=== PATIENT | male | born 1940 | race Caucasian/White ===

== ENCOUNTER 2017-03-04 20:16 | Inpatient (IN) | payer MEDICARE, BC ==
[~2017-03-04] VITALS: Ht 180.3 cm; Wt 108.0 kg
--- NOTE | ~2017-03-04 | HEMODYNAMI ---
PATIENT:CLARE PERRY MEDICAL RECORD: [id number] : 44 [facility] [id number] ADMISSION DATE: 03/06/17 Generatedon:03/09/20178:42 Patient name: CLARE PERRY Patient #: [id number] SSN: : 1940 Date of study: 03/09/2017 Page: Of Hemodynamic Procedure Report Patient Data Patient Demographics Procedure consent was obtained First Name: CLARE Gender: Male Last Name: ORLANDO : 1940 [facility] Initial: L Age: 77 year(s) Patient #: [id number] Race: Additional ID: [id number] Contact details [address]: [address] [place] [address] State: [place] City: [place] Zip code: [address] Past Medical History Allergies Allergen Reaction Date Comments Reported Other allergy 03/08/2017 codeine Other allergy 03/09/2017 Codeine Admission Admission Data Admission Date: 03/06/2017 Admission Time: 11:42 Arrival Date: 03/06/2017 Arrival Time: 11:42 Admit Source: Other Insurance Payor: Medicare Room #: D.2114 Lab Results Lab Result Date: 03/09/2017 Lab Result Time: 0:00 Biochemistry Name Units Result Min Max BUN mg/dl 18 --(---*)-- 7 18 Creatinine mg/dl 1.3 --(---*)-- 0.6 1.3 CBC Name Units Result Min Max Hematocrit % 41.7 -*(----)-- 42 54 Hemoglobin g/dl 14.3 --(*---)-- 13.5 17.5 Procedure Procedure Types Cath Procedure PCI Procedure Coronary Stent Coronary Stent Initial Miscellaneous Procedures Moderate Sedation up to 15 minutes Procedure Description Procedure Date Procedure Date: 03/09/2017 Procedure Start Time: 8:27 Procedure End Time: 8:40 Procedure Staff Name Function Satya Rios MD Performing Physician Nahum Burks RT Monitor Samara Young RT Scrub Buffie Kline RN Nurse Procedure Data Cath Procedure Fluoroscopy Diagnostic fluoroscopy Total fluoroscopy Time: 2.7 time: 2.7 min min Diagnostic fluoroscopy Total fluoroscopy dose: 184 dose: 184 mGy mGy Contrast Material Contrast Material Type Amount (ml) Isovue 300 42 Entry Location Entry Primary Successful Side Size Upsize Upsize Entry Closure Succes sful Closure Location (Fr) 1 (Fr) 2 (Fr) Remarks Device Remarks Femoral Left 6 Fr Exoseal artery Short Estimated blood loss: 10 ml Procedure Complications No complications Procedure Medications Medication Administration Route Dosage Oxygen NC 2 l/min Lidocaine 2% added to field 20 Heparin Flush Bag added to field 2 bags (1000units/500ml NS) 0.9% NaCl I.V. 100 ml/hr Versed I.V. 1 mg Fentanyl I.V. 50 mcg Heparin Bolus I.V. 4000 units Versed I.V. 0.5 mg Fentanyl I.V. 25 mcg Hemodynamics Rest HGB: 14.3 (g/dl) Heart Rate: 74 (bpm) Snapshots Pre Cath Intra NCS Post Cath Vital Signs Time Heart Resp SPO2 etCO2 NIBP (mmHg) Rhythm Pain Sedation Rate (ipm) (%) (mmHg) Status Level (bpm) 8:12:06 75 14 98 32.7 148/83(115) NSR 0 (11) 10(A) , No pain 8:16:53 70 15 97 35 143/78(119) NSR 0 (11) 10(A) , No pain 8:21:37 73 14 96 24.3 140/81(106) NSR 0 (11) 10(A) , No pain 8:26:20 71 15 97 0 140/80(117) NSR 0 (11) 10(A) , No pain 8:31:03 75 14 95 32.7 131/80(107) NSR 0 (11) 9(A) , No pain 8:35:41 79 16 97 29.8 127/80(119) NSR 0 (11) 9(A) , No pain 8:40:14 77 15 97 29.7 134/72(99) NSR 0 (11) 10(A) , No pain Medications Time Medication Route Dose Verified Delivered Reason Notes Effectiveness by by 8:10:40 Oxygen NC 2 Satya Schmitt used for l/min 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 100 Satya Buffie Per physician ml/hr Gabriel Kline RN 8:27:33 Versed I.V. 1 mg Satya Buffie for sedation Gabriel Kline RN 8:27:39 Fentanyl I.V. 50 Satya Buffie for sedation mcg Gabriel Kline RN 8:30:21 Heparin Bolus I.V. 4000 Satya Buffie for verifie d units Gabriel Kline RN anticoagulation with dr rios 8:31:35 Versed I.V. 0.5 Satya Buffie for sedation mg Gabriel Kline RN 8:31:39 Fentanyl I.V. 25 Satya Buffie for sedation mcg Gabriel Kline RN Procedure Log Time Note 7:36:12 Informed consent obtained and on chart 7:36:33 Time tracking: Regular hours 7:36:37 Plan of Care:Hemodynamics will remain stable., Cardiac rhythm will remain stable., Comfort level will be maintained., Respiratory function will remain adequate., Patient/ family verbilizes understanding of procedure., Procedure tolerated without complication., Recovers from procedure without complications.. 7:37:36 H&P Date Dictated: 03/08/2017 Within 30 days and on chart.. 7:41:59 Nahum JAY(R) sent for patient. Start room use. 7:43:40 Lab Result : BUN 18 mg/dl 7:43:40 Lab Result : Creatinine 1.3 mg/dl 7:43:40 Lab Result : Hemoglobin 14.3 g/dl 7:43:44 Lab results completed and on chart. 7:54:11 Patient received from Pre/Post Procedure Room to CCL 1 Alert and oriented. Tansferred to table in Supine position. 7:54:12 Warm blankets applied, and janessa hugger turned on for patient comfort. 7:54:13 Correct patient and procedure confirmed by team. 7:54:14 ECG and BP/O2 sat monitors applied to patient. 7:55:12 IV left forearm D/C'd due to infiltration. 8:10:40 Oxygen 2 l/min NC was administered by Oskar Kline RN; used for procedure; 8:10:48 Lidocaine 2% 20ml vial added to field was administered by Satya Rios MD; for local anesthetic; 8:10:51 IV started by Oskar Kline RN inright forearm with a 20 gauge IV catheter with 0.9% NaCl at KVO. 8:10:54 Heparin Flush Bag (1000units/500ml NS) 2 bags added to field was administered by Satya Rios MD; used for procedure; 8:11:02 0.9% NaCl 100 ml/hr I.V. was administered by Oskar Kline RN; Per physician; 8:11:05 Vital chart was started 8:11:08 IV CATHETER 20g opened to sterile field. 8:11:13 IV Extension Set opened to sterile field. 8:11:27 Baseline sample Acquired. 8:11:30 Rhythm: sinus rhythm 8:11:32 Full Disclosure recording started 8:11:33 Pre-procedure instructions explained to patient. 8:11:35 Pre-op teaching completed and patient verbalized understanding. 8:11:38 Family in patients room. 8:11:39 Patient NPO since Midnight. 8:11:48 Patient allergic to Other allergyCodeine 8:11:50 Is the patient allergic to Iodine/contrast media? No. 8:11:51 Is patient on blood thinner?Yes 8:11:52 ACC The patient was administered the following blood thiners within the last 24 hours: ACCPlavix 8:11:53 Patient diabetic? Yes. 8:11:54 If diabetic: On Metformin? No 8:11:59 Previous problem with sedation/anesthesia? No ? 8:11:59 Snore? Yes 8:12:00 Sleep apnea? Yes 8:12:01 Deviated septum? No 8:12:02 Opens mouth fully? Yes 8:12:03 Sticks out tongue? Yes 8:12:04 Airway obstruction? No ? 8:12:05 Dentures? No ? 8:12:09 Pre procedure: left posterior tibial pulse 1+ Palpable, but thready & weak; easily obliterated 8:12:16 Patient pain scale 0/10 ?. 8:12:21 Left groin area was prepped with chlora-prep and draped in sterile fashion 8:12:31 Use device set CATH PACK 8:12:35 ACIST Syringe (95363) opened to sterile field. 8:12:36 ACIST Hand Control (51670) opened to sterile field. 8:12:36 ACIST Manifold (26641) opened to sterile field. 8:12:37 Medline Cath Pack ([id number]) opened to sterile field. 8:12:37 Bag Decanter (2002S) opened to sterile field. 8:12:38 DIAGNOSTIC WIRE .035 260cm J wire (971604) opened to sterile field. 8:12:46 SHEATH 6FR [place] (WOW561) opened to sterile field. 8:12:46 INFLATOR Merit BasixCompak (MV7490) opened to sterile field. 8:12:59 Alarms reviewed by R. N. 8:12:59 Sharps counted by scrub and verified by R.N. 8:15:33 Zero performed for pressure channel P1 8:15:36 Zero performed for pressure channel P1 8:16:17 Zero performed for pressure channel P1 8:18:24 Lab Result : Hematocrit 41.7 % 8:21:38 CHOICE PT Extra Support 182cm wire ([id number]) opened to sterile field. 8:21:39 GUIDE 6FR HS II catheter ([id number]) opened to sterile field. 8:27:17 Physician arrived 8:27:17 --------ALL STOP TIME OUT------ 8:27:17 Final Timeout: patient, procedure, and site verified with staff and physician. All members of the team are in agreement. 8:27:18 Left groin site verified by team. 8:27:21 Physical assessment completed. ASA score P 2 - A patient with mild systemic disease as per Satya Rios MD. 8:27:24 Sedation plan: IV Moderate Sedation Medication:Versed, Fentanyl 8:27:30 Procedure started. 8:27:33 Versed 1 mg I.V. was administered by Oskar Kline RN; for sedation; 8:27:33 Local anesthetic to left femerol artery with Lidocaine 2% by Satya Rios MD.INITIAL ACCESS ONLY 8:27:39 Fentanyl 50 mcg I.V. was administered by Oskar Kline RN; for sedation; 8:28:22 A 6 Fr Short sheath was inserted into the Left Femoral artery 8:29:14 6 Fr HSII guide catheter was inserted over the wire 8:30:21 Heparin Bolus 4000 units I.V. was administered by Oskar Kline RN; for anticoagulation; verified with dr rios 8:30:43 Guide Catheter removed. pressure damping. 8:30:52 GUIDE 6FR AR 2.0 SH catheter ([id number]) opened to sterile field. 8:31:22 6 Fr AR 2 SH guide catheter was inserted over the wire 8:31:35 Versed 0.5 mg I.V. was administered by Oskar Kline RN; for sedation; 8:31:39 Fentanyl 25 mcg I.V. was administered by Oskar Kline RN; for sedation; 8:32:56 CHOICE PT ES wire advanced. 8:33:58 Wire advanced across lesion. 8:34:54 Inflation Number: 1 A BRITNI RX 3.0 x 34 stent ([id number]) was prepped and advanced across the Mid RCA. The stent was deployed at 15 GLORIA for 0:10 (min:sec). 8:35:22 Stent catheter was removed intact over wire. 8:35:27 Wire removed. 8:35:31 Guide catheter removed. 8:35:36 EXOSEAL 6Fr (EX600) opened to sterile field. 8:35:43 Sheath removed intact; hemostasis achieved with Exoseal to the Left Femoral artery. 8:35:45 Procedure ended.(Physican Out) 8:35:53 Fluoroscopy time 02.70 minutes. 8:35:57 Flurop Dose total: 184 8:35:57 Fluoroscopy dose: 184 mGy 8:36:00 Contrast amount:Isovue 300 42ml. 8:36:28 Sharps counted by scrub and verified by R.N. 8:36:29 Insertion/operative site no bleeding no hematoma. 8:36:32 Post-op/insertion site Left Femoral artery dressed using a 4 x 4 and Tegaderm. 8:36:37 Post left femerol artery:stable, soft, clean and dry 8:36:39 Post Procedure Pulses reassessed and unchanged 8:36:41 Post-procedure physical assessment completed. ASA score P 2 - A patient with mild systemic disease as per Satya Rios MD. 8:36:43 Post procedure rhythm: unchanged. 8:36:45 Estimated blood loss: 10 ml 8:36:47 Post procedure instruction explained to patient.Patient verbalizes understanding. 8:36:47 Patient needs reinforcement of post procedure teaching. 8:40:33 Procedure and supply charges have been captured, reviewed, submitted and are correct. 8:40:36 Procedure Complication : No complications 8:40:38 Vital chart was stopped 8:40:38 See physician's report for complete and final results. 8:40:40 Report given to PCU. 8:40:43 Patient transfered to Pre/Post Procedure Room with Stretcher. 8:40:44 Procedure ended. 8:40:44 Full Disclosure recording stopped 8:41:02 End room use (Document Last) Intervention Summary Intervention Notes Time ActionType Lesion and Equipment Used Action# Pressure Duration Attributes 8:34:54 Place stent Mid RCA BRITNI RX 3.0 x 1 15 00:10 34 stent ([id number]) Device Usage Item Name Manufacture Quantity Catalog Number Hospital Part Current M inimal Lot# / Charge Number Stock Stock Serial# Code IV CATHETER B. Amato 1 [id number] [id number] 214002 5 20g IV Extension Hospira 1 61119-49 003474 23320 651661 5 Set ACIST Syringe Acist 1 60703 594128 951626 737671 2 0 (21803) Medical Systems Inc ACIST Hand Acist 1 32190 086844 216378 438065 5 Control Medical (95512) Systems Inc ACIST Manifold Acist 1 75372 513020 608390 738580 5 (94630) Medical Systems Inc Medline Cath Cardinal 1 [id number] 942718 96621 169867 5 [facility] ([id number]) Bag Decanter Microtek 1 2001S 991909 77282 585664 5 (2001S) Medical Inc. DIAGNOSTIC St Remi 1 483686 957088 139802 738666 3 0 WIRE .035 260cm J wire (797197) SHEATH 6FR Terumo 1 [id number] 184315 534979 122975 4 0 [place] (IFN525) INFLATOR Merit Merit 1 TY4905 500401 538049 439509 1 5 [employer] [facility] HealthcareSureDone (UI9290) CHOICE PT [place] 1 [id number] 138092 692605 761664 5 Extra Support Scientific 182cm wire ([id number]) GUIDE 6FR HS Medtronic 1 [id number] 735849 76621 595739 1 II catheter (DB0MCUM) GUIDE 6FR AR Medtronic 1 [id number] 139652 42031 740226 1 2.0 SH catheter ([id number]) BRITNI RX 3.0 x Medtronic 1 [id number] 431384 0991256 768793 5 [id number] 34 stent ([id number]) EXOSEAL 6Fr Cardinal 1 EX600 307883 492921 169499 1 0 (EX600) Health Signature Audit [place] Stage Time Signature Unsigned Intra-Procedure 03/09/2017 Nahum Burks 8:42:40 AM RT(R) Signatures Monitor : Nahum Burks RT Signature : Date : Time : [id number] [place] [address]
--- NOTE | ~2017-03-04 | HEMODYNAMI ---
PATIENT:CLARE PERRY MEDICAL RECORD: [id number] : 44 [id number] ADMISSION DATE: 03/06/17 Generatedon:03/08/201713:01 Patient name: CLARE PERRY Patient #: [id number] SSN: : 1940 Date of study: 03/08/2017 Page: Of Hemodynamic Procedure Report Patient Data Patient Demographics Procedure consent was obtained First Name: CLARE Gender: Male Last Name: ORLANDO : 1940 Middle Initial: L Age: 77 year(s) Patient #: [id number] Race: Additional ID: [id number] Contact details Address: [address] [place] [address] State: [place] City: [place] Zip code: [address] Past Medical History Allergies Allergen Reaction Date Comments Reported Other allergy 03/08/2017 codeine Admission Admission Data Admission Date: 03/06/2017 Admission Time: 11:42 Arrival Date: 03/06/2017 Arrival Time: 11:42 Admit Source: Other Insurance Payor: Medicare Room #: D.2114 Lab Results Lab Result Date: 03/08/2017 Lab Result Time: 0:00 Biochemistry Name Units Result Min Max BUN mg/dl 17 --(---*)-- 7 18 Creatinine mg/dl 1.2 --(---*)-- 0.6 1.3 CBC Name Units Result Min Max Hemoglobin g/dl 14.5 --(*---)-- 13.5 17.5 Procedure Procedure Types Cath Procedure Diagnostic Procedure LHC LHC w/Coronaries FFR/IVUS Intra-Coronary IVUS Initial PCI Procedure Coronary Stent Coronary Stent Initial Miscellaneous Procedures Moderate Sedation up to 30 minutes Procedure Description Procedure Date Procedure Date: 03/08/2017 Procedure Start Time: 12:34 Procedure End Time: 12:57 Procedure Staff Name Function Satya Rios MD Performing Physician Gia Alcocer RT Monitor Latisha Rascon RT Scrub Estefanía Castellano RN Nurse Procedure Data Cath Procedure Fluoroscopy Diagnostic fluoroscopy Total fluoroscopy Time: 4.9 time: 4.9 min min Diagnostic fluoroscopy Total fluoroscopy dose: dose: 1020 mGy 1020 mGy Contrast Material Contrast Material Type Amount (ml) Isovue 300 145 Entry Location Entry Primary Successful Side Size Upsize Upsize Entry Closure Succes sful Closure Location (Fr) 1 (Fr) 2 (Fr) Remarks Device Remarks Femoral Right 5 Fr 6 Fr Exoseal artery Short Estimated blood loss: 5 ml Diagnostic catheters Device Type Used For End Catheter Placement MULTIPACK Pigtail 5 Fr LV Angiography catheter MULTIPACK JL 4.0 5Fr Left Coronary catheter Angiography MULTIPACK 3DRC 5Fr Right Coronary catheter Angiography Procedure Complications No complications Procedure Medications Medication Administration Route Dosage 0.9% NaCl I.V. 100 ml/hr Oxygen NC 2 l/min Lidocaine 2% added to field 20 Heparin Flush Bag added to field 2 bags (1000units/500ml NS) Fentanyl I.V. 50 mcg Versed I.V. 1 mg Fentanyl I.V. 25 mcg Versed I.V. 0.5 mg Heparin Bolus I.V. 4000 units Nitroglycerin IC/IA I.C. 200 mcg Integrilin (Bolus I.V. 9.5 ml 2mg/ml) Plavix P.O. 600 mg Hemodynamics Rest HGB: 14.5 (g/dl) Heart Rate: 68 (bpm) Snapshots Pre Cath Intra NCS Post Cath Vital Signs Time Heart Resp SPO2 etCO2 NIBP (mmHg) Rhythm Pain Sedation Rate (ipm) (%) (mmHg) Status Level (bpm) 12:18:42 69 19 97 31.8 126/75(104) NSR 0 (11) 10(A) , No pain 12:22:52 71 17 97 28.7 127/71(107) NSR 0 (11) 10(A) , No pain 12:27:00 71 16 97 0 127/79(92) NSR 0 (11) 10(A) , No pain 12:31:06 69 14 96 0 124/79(100) NSR 0 (11) 10(A) , No pain 12:35:14 66 16 98 0 121/75(90) NSR 0 (11) 9(A) , No pain 12:39:19 64 14 96 29.5 123/78(94) NSR 0 (11) 9(A) , No pain 12:43:27 70 15 94 0.7 125/77(111) NSR 0 (11) 9(A) , No pain 12:47:35 74 16 97 24.9 129/76(108) NSR 0 (11) 9(A) , No pain 12:51:45 68 14 95 23.4 133/76(118) NSR 0 (11) 9(A) , No pain 12:55:57 77 14 98 21.9 105/67(87) NSR 0 (11) 10(A) , No pain Medications Time Medication Route Dose Verified Delivered Reason Not es Effectiveness by by 12:00:30 0.9% NaCl I.V. 100ml/hr Satya José for local Gabriel Castellano RN anesthetic 12:00:38 Oxygen NC 2 l/min Satya José Per physician Gabriel Castellano RN 12:00:44 Lidocaine 2% added 20ml Satya Hernadez for local to vial Gabriel Rios MD anesthetic field 12:00:51 Heparin Flush added 2 bags Satya Hernadez used for Bag to Gabriel Rios MD procedure (1000units/500ml field NS) 12:28:31 Fentanyl I.V. 50 mcg Satya José for sedation Gabriel Castellano RN 12:28:41 Versed I.V. 1 mg Satya José for sedation Gabriel Castellano RN 12:33:25 Fentanyl I.V. 25 mcg Satya José for sedation Gabriel Castellano RN 12:35:53 Versed I.V. 0.5 mg Satya José for sedation Gabriel Castellano RN 12:41:22 Heparin Bolus I.V. 4000 Satya José for tariq ified units Gabriel Castellano RN anticoagulation by 12:41:47 Integrilin I.V. 9.5 ml Satya José for was jos (Bolus 2mg/ml) Gabriel Castellano RN antiplatelet 0.5Ml therapy 12:52:10 Nitroglycerin I.C. 200mcg Satya Hernadez for IC/IA Gabriel Rios MD vasodilation 12:57:21 Plavix P.O. 600 mg Satya José for Gabriel Castellano RN antiplatelet therapy Procedure Log Time Note 11:59:17 Informed consent obtained and on chart 11:59:36 Latisha Rascon RT(R) sent for patient. Start room use. 11:59:37 Time tracking: Regular hours 11:59:41 Plan of Care:Hemodynamics will remain stable., Cardiac rhythm will remain stable., Comfort level will be maintained., Respiratory function will remain adequate., Patient/ family verbilizes understanding of procedure., Procedure tolerated without complication., Recovers from procedure without complications.. 12:00:30 0.9% NaCl 100ml/hr I.V. was administered by Estefanía Castellano RN; for local anesthetic; 12:00:38 Oxygen 2 l/min NC was administered by Estefanía Castellano RN; Per physician; 12:00:44 Lidocaine 2% 20ml vial added to field was administered by Satya Rios MD; for local anesthetic; 12:00:51 Heparin Flush Bag (1000units/500ml NS) 2 bags added to field was administered by Satya Rios MD; used for procedure; 12:07:35 Diagnostic Cath Status : Elective 12:08:00 Admit Source: Other 12:08:02 Arrival Date: 03/06/2017 11:42:00 AM 12:08:28 Insurance Payor : Medicare 12:08:48 Patient received from Med II to CCL 2 Alert and oriented. Tansferred to table in Supine position. 12:08:48 Warm blankets applied, and janessa hugger turned on for patient comfort. 12:08:49 Correct patient and procedure confirmed by team. 12:08:49 ECG and BP/O2 sat monitors applied to patient. 12:17:39 Vital chart was started 12:17:40 Baseline sample Acquired. 12:17:44 Rhythm: sinus rhythm 12:18:22 Full Disclosure recording started 12:18:27 H&P Date Dictated: 03/08/2017 New H&P dictated by physician.. 12:18:28 Pre-procedure instructions explained to patient. 12:18:28 Pre-op teaching completed and patient verbalized understanding. 12:18:35 Family in patients room. 12:18:36 Patient NPO since Midnight. 12:19:27 Patient allergic to Other allergycodeine 12:19:31 Is the patient allergic to Iodine/contrast media? No. 12:19:32 Was the patient premedicated? No 12:19:34 Is patient on blood thinner?Yes 12:19:37 ACC The patient was administered the following blood thiners within the last 24 hours: ACCPlavix 12:20:06 Patient diabetic? Yes. 12:20:08 If diabetic: On Metformin? No 12:20:11 Previous problem with sedation/anesthesia? No ? 12:20:13 Snore? Yes 12:20:13 Sleep apnea? Yes 12:20:14 Deviated septum? No 12:20:15 Opens mouth fully? Yes 12:20:15 Sticks out tongue? Yes 12:20:17 Airway obstruction? No ? 12:20:20 Dentures? No ? 12:20:22 Pre procedure: right dorsailis pedis pulse 2+ Normal; easily identifiable; not easily obliterated 12:20:25 Pre procedure: left dorsailis pedis pulse 2+ Normal; easily identifiable; not easily obliterated 12:20:32 IV patent on arrival in left forearm with 0.9% NaCl at [facility]. 12:20:55 Lab Result : BUN 17 mg/dl 12::55 Lab Result : Hemoglobin 14.5 g/dl 12::55 Lab Result : Creatinine 1.2 mg/dl 12:20:55 Hemodynamic formulas in Rest were re-calculated based on hemoglobin value from 03/08/2017 12:00:00 AM 12::58 Lab results completed and on chart. 12:21:03 Right groin area was prepped with chlora-prep and draped in sterile fashion 12:21:04 Alarms reviewed by R. N. 12:21:05 Sharps counted by scrub and verified by R.N. 12:23:40 Zero performed for pressure channel P1 12::44 Zero performed for pressure channel P1 12::57 Physician arrived 12::58 --------ALL STOP TIME OUT------ 12::58 Final Timeout: patient, procedure, and site verified with staff and physician. All members of the team are in agreement. 12:28:00 Right groin site verified by team. 12:28:03 Physical assessment completed. ASA score P 2 - A patient with mild systemic disease as per Satya Rios MD. 12:28:07 Sedation plan: IV Moderate Sedation Medication:Versed, Fentanyl ::22 Use device set Femoral Dx 12:28:23 ACIST Syringe (59162) opened to sterile field. 12:28:23 Bag Decanter (2002S) opened to sterile field. 12:28:23 Medline Cath Pack ([id number]) opened to sterile field. 12:28:24 SHEATH 5FR [place] (MLN739) opened to sterile field. 12:28:25 DIAGNOSTIC WIRE .035 260cm J wire (616903) opened to sterile field. 12:28:26 ACIST Hand Control (75859) opened to sterile field. 12:28:27 ACIST Manifold (51966) opened to sterile field. 12:28:28 DIAGNOSTIC Multipack 5Fr catheter set (FW9125) opened to sterile field. 12:28:29 Tegaderm 4 x 4 (1626W) opened to sterile field. 12:28:31 Fentanyl 50 mcg I.V. was administered by Estefanía Castellano RN; for sedation; 12:28:41 Versed 1 mg I.V. was administered by Estefanía Castellano RN; for sedation; 12:33:25 Fentanyl 25 mcg I.V. was administered by Estefanía Castellano RN; for sedation; 12:34:29 Procedure started. 12:34:32 Local anesthetic to right femoral artery with Lidocaine 2% by Satya Rios MD.INITIAL ACCESS ONLY 12:34:40 A 5 Fr sheath was inserted into the Right Femoral artery 12:35:27 A MULTIPACK Pigtail 5 Fr catheter was advanced over the wire and used for LV Angiography. 12:35:53 Versed 0.5 mg I.V. was administered by Estefanía Castellano RN; for sedation; 12:36:19 LV hemodynamics recorded. 12:36:20 LV gram done using JONES 12:36:23 Injector settings: Ml/sec: 5, Volume: 15, 12:36:31 EF : 40 % 12:36:32 Catheter removed. 12:36:38 A MULTIPACK JL 4.0 5Fr catheter was advanced over the wire and used for Left Coronary Angiography. 12:37:19 LCA angiography performed. 12:37:21 Injector settings: Ml/sec: 3, Volume: 6, 12:38:34 Catheter removed. 12:38:38 A MULTIPACK 3DRC 5Fr catheter was advanced over the wire and used for Right Coronary Angiography. 12:38:49 INFLATOR Merit BasixCompak (WQ7410) opened to sterile field. 12:38:49 SHEATH 6FR [place] (OKX274) opened to sterile field. 12:39:05 RCA angiography performed. 12:39:09 Injector settings: Ml/sec: 3, Volume: 6, 12:39:34 [place] IVUS Catheter (28607D) opened to sterile field. 12:40:07 CHOICE PT Extra Support 182cm wire ([id number]) opened to sterile field. 12:40:46 Catheter removed. 12:40:47 Proceeding to intervention. 12:40:54 Sheath upsized to a 6 Fr Short. 12:41:22 Heparin Bolus 4000 units I.V. was administered by Estefanía Castellano RN; for anticoagulation; verified by 12:41:36 GUIDE 6FR XB 3.5 catheter ([id number]) opened to sterile field. 12:41:44 6 Fr xb 3.5 guide catheter was inserted over the wire 12:41:47 Integrilin (Bolus 2mg/ml) 9.5 ml I.V. was administered by Estefanía Castellano RN; for antiplatelet therapy; wasted 0.5Ml 12:41:50 choice pt wire advanced. 12:41:53 Wire advanced across lesion. 12:42:00 IVUS catheter advanced over wire. 12:44:32 IVUS pass to LAD lesion performed. 12:44:34 IVUS catheter removed over wire. 12:45:57 Inflation Number: 1 A INTEGRITY RX 3.0 x 22 stent ([id number]) was prepped and advanced across the Prox LAD. The stent was deployed at 17 GLORIA for 0:10 (min:sec). 12:46:41 Inflation number: 2 The stent balloon was then re-inflated across the Prox LAD to 9 GLORIA for 0:10 (min:sec). 12:46:50 Stent catheter was removed intact over wire. 12:48:17 Inflation Number: 3 A INTEGRITY RX 3.0 x 09 stent ([id number]) was prepped and advanced across the Prox LAD. The stent was deployed at 17 GLORIA for 0:10 (min:sec). 12:49:16 Stent catheter was removed intact over wire. 12:52:10 Nitroglycerin IC/IA 200mcg I.C. was administered by Satya Rios MD; for vasodilation; 12:52:10 spasm noted after stent; nitro given 12:54:54 Wire removed. 12:54:55 Guide catheter removed. 12:55:04 EXOSEAL 6Fr (EX600) opened to sterile field. 12:55:12 Sheath removed intact; hemostasis achieved with Exoseal to the Right Femoral artery. 12:55:14 Procedure ended.(Physican Out) 12:55:48 Fluoroscopy time 04.90 minutes. 12:55:52 Flurop Dose total: 1020 12:55:52 Fluoroscopy dose: 1020 mGy 12:56:09 Contrast amount:Isovue 300 145ml. 12:56:11 Sharps counted by scrub and verified by R.N. 12:56:12 Insertion/operative site no bleeding no hematoma. 12:56:14 Post-op/insertion site Right Femoral artery dressed using a 4 x 4 and Tegaderm. 12:56:17 Post right femoral artery:stable 12:56:18 Post Procedure Pulses reassessed and unchanged 12:56:22 Post procedure rhythm: unchanged. 12:56:24 Estimated blood loss: 5 ml 12:56:26 Post procedure instruction explained to patient.Patient verbalizes understanding. 12:56:26 Patient needs reinforcement of post procedure teaching. 12:56:51 Procedure type changed to Cath procedure, Diagnostic procedure, LHC, LHC w/Coronaries, FFR/IVUS, Intra-Coronary IVUS Initial, PCI procedure, Coronary Stent, Coronary Stent Initial, Miscellaneous Procedures, Moderate Sedation up to 30 minutes 12:56:52 Procedure and supply charges have been captured, reviewed, submitted and are correct. 12:56:57 Procedure Complication : No complications 12:57:05 Vital chart was stopped 12:57:06 See physician's report for complete and final results. 12:57:12 Report given to [facility]. 12:57:21 Plavix 600 mg P.O. was administered by Estefanía Castellano RN; for antiplatelet therapy; 12:57:24 Patient transfered to [facility] with Stretcher. 12:57:26 Procedure ended. 12:57:26 Full Disclosure recording stopped 12:57:52 ACC-PCI Only Patient was given prescriptions, or instructed by Satya Rios MD to start/continue the following medications upon discharge: Plavix 12:57:54 End room use (Document Last) Intervention Summary Intervention Notes Time ActionType Lesion and Equipment Action# Pressure Duration Attributes Used 12:45:57 Place stent Prox LAD INTEGRITY RX 1 17 00:10 3.0 x 22 stent ([id number]) 12:46:41 Reinflate Prox LAD INTEGRITY RX 2 9 00:10 stent 3.0 x 22 balloon stent ([id number]) 12:48:17 Place stent Prox LAD INTEGRITY RX 3 17 00:10 3.0 x 09 stent ([id number]) Device Usage Item Name Manufacture Quantity Catalog Number Hospital Part Current Mini mal Lot# / Charge Number Stock Stock Serial# Code ACIST Acist 1 59872 413339 905969 026613 20 Syringe Medical (07715) Systems Inc Bag Decanter Microtek 1 2001S 871975 42675 063685 5 (2001S) Medical Inc. Medline Cath Cardinal 1 [id number] 162305 54614 995319 5 Quincus ([id number]) SHEATH 5FR Terumo 1 RRS000 908197 777302 492563 40 [place] (XWX973) DIAGNOSTIC St Remi 1 035851 467129 187722 596688 30 WIRE .035 260cm J wire (056153) ACIST Hand Acist 1 36604 011112 820628 188153 5 Control Medical (77147) Systems Inc ACIST Acist 1 50009 555359 639913 810128 5 Manifold Medical (67179) Systems Inc DIAGNOSTIC Cardinal 1 BI4315 881039 87575 904306 30 Multipack Health 5Fr catheter set (KR3394) Tegaderm 4 x 3M 1 1626W 348388 539313 220562 5 4 (1626W) MULTIPACK Cardinal 1 266602 5 Pigtail 5 Fr Health catheter MULTIPACK JL Cardinal 1 034080 5 4.0 5Fr Health catheter MULTIPACK Cardinal 1 639880 5 3DRC 5Fr Health catheter INFLATOR Merit 1 PU4587 147640 953154 461943 15 QVOD Technology BasixCompak (MK4167) SHEATH 6FR Terumo 1 QKN006 621484 140962 528497 40 [place] (LGB391) [place] 1 14437Y 087078 702435 809579 8 [place] IVUS Catheter (74746Y) CHOICE PT [place] 1 [id number] 275057 548486 646929 5 Extra Scientific Support 182cm wire ([id number]) GUIDE 6FR XB Cardinal 1 [id number] 364707 715404 463788 2 3.5 catheter Health (65465551) INTEGRITY RX Medtronic 1 [id number] 424530 045068 409811 5 [id number] 3.0 x 22 stent ([id number]) INTEGRITY RX Medtronic 1 [id number] 966713 519141 720711 5 [id number] 3.0 x 09 stent ([id number]) EXOSEAL 6Fr Cardinal 1 EX600 411377 568113 233492 10 (EX600) Health Signature Audit [place] Stage Time Signature Unsigned Intra-Procedure 03/08/2017 Gia Alcocer 1:01:03 PM RT(R) Signatures Monitor : Gia Alcocer RT Signature : Date : Time : [place] [id number] [facility] [place] [address]
--- NOTE | ~2017-03-04 | HP ---
PATIENT: CLARE DOUGLASS MEDICAL RECORD: [id number] ACCOUNT: [id number] LOCATION:[place] [id number] : 44 ADMISSION DATE: 03/06/17 HISTORY AND PHYSICAL EXAMINATION Addendum Mr. Douglass presented with anginal symptomatology, however, when we brought him into the cardiac catheterization laboratory, his fever was 102.5 and he is having overt rigors. We did not proceed with coronary angiography, started him on Rocephin 1 gram q.12 hours. We will watch and see what his white count and fever do. His chest x-ray was clear, influenza screen was clear as well. No localizing source of infection at this time. TRANSINT:[id number] Voice Confirmation ID: [id number] DOCUMENT ID: [id number] ANGUS LIRIANO MD at 0839 CC: [id number] DICTATION DATE: 03/05/17 1325 FITNESS COORDINATOR: 03/05/17 1420 ADM IN [place] [id number] [place] [address]
--- NOTE | ~2017-03-04 | OP ---
PATIENT NAME: CLARE PERRY MEDICAL RECORD: [id number] :42 LOCATION:D.M2 D.2114 ADMISSION DATE:03/06/17 SURGEON: ANGUS LIRIANO MD DATE OF OPERATION: 03/08/2017 PROCEDURES: 1. PTCA stent to LAD. 2. Intravascular ultrasound of the LAD. 3. Left heart catheterization. 4. Selective coronary angiography. 5. Left ventriculogram. INDICATION: Angina and coronary artery disease. PROCEDURE IN DETAIL: After informed consent was obtained and after detailed explanation of risks, benefits as well as alternative therapies, the patient elected to proceed with angiogram and angioplasty. The right femoral area was prepped and draped in normal sterile fashion. The right femoral artery was cannulated via modified Seldinger technique with placement of 6-[place]izen [place] sheath. All catheters exchanged through this sheath. FINDINGS: Left ventriculogram was performed in standard 30-degree JONES view reveals global hypokinesis throughout all segments. Overall ejection fraction 35% to 40%. SELECTIVE CORONARY ANGIOGRAPHY: 1. Left main showed no significant angiographic disease. 2. Left anterior descending has greater than 75% stenosis proximally confirmed by intravascular ultrasound. 3. Left circumflex has moderate irregularities, but no flow-limiting stenosis. 4. Right coronary artery has greater than 75% stenosis mid vessel. PTCA STENT OF THE LAD: The stent used was a 3.0 x 22 and 3.0 x 9 both Integrity stents. Result was 0% residual stenosis. OVERALL IMPRESSION: Successful percutaneous transluminal coronary angioplasty stent of the left anterior descending going from 75% initial stenosis to 0% residual. PLAN: PTCA stent of the RCA in the near future. TRANSINT:[id number] Voice Confirmation ID: [id number] DOCUMENT ID: [id number] ANGUS LIRIANO MD at 1800 CC: [id number] DICTATION DATE: 03/08/17 1300 TEST DEVELOPER: 03/08/17 1402 DIS IN 03/09/17 [place] [address] [place] [address]
--- NOTE | ~2017-03-04 | DS ---
PATIENT:CLARE DOUGLASS :44 MEDICAL RECORD: [id number] DISCHARGE SUMMARY ADMISSION DATE: 03/06/17 DISCHARGE DATE: 03/09/17 DISCHARGE DIAGNOSES: 1. Angina. 2. Coronary artery disease. 3. Percutaneous transluminal coronary angioplasty and stent to the left anterior descending and right coronary artery this admission. 4. Fever of unknown origin. HOSPITAL COURSE: Mr. Douglass presents with anginal symptomatology, found to have 2-vessel coronary artery disease; however, prior to cardiac catheterization, he had a fever of unknown origin, was treated with IV antibiotics and his fever cleared. No localized source of infection was found. He underwent catheterization revealing 2-vessel coronary artery disease, underwent PTCA and stent of the LAD and RCA. Discharged home with the addition of aspirin and Plavix to his medical regimen. Will follow up with [facility] in 1 month. TRANSINT:[id number] Voice Confirmation ID: [id number] DOCUMENT ID: [id number] ANGUS LIRIANO MD at 1800 CC: [id number] DICTATION DATE: 03/09/17837 STUDIO CAMERA OPERATOR: 03/10/17 0306 DIS IN 03/09/17 [facility] [address] [place] [address]
--- NOTE | ~2017-03-04 | OP ---
PATIENT NAME: CLARE PERRY MEDICAL RECORD: [id number] :44 LOCATION:D.M2 D.2114 ADMISSION DATE:03/06/17 SURGEON: ANGUS LIRIANO MD DATE OF OPERATION: 03/09/2017 DATE OF SERVICE: 03/09/2017 PROCEDURES: 1. PTCA stent RCA. 2. Selective coronary angiography. INDICATION: Angina and coronary artery disease. PROCEDURE IN DETAIL: After informed consent was obtained and after detailed explanation of risks, benefits as well as alternative therapies, the patient elected to proceed with angiogram and angioplasty. The left femoral area was prepped and draped in normal sterile fashion. The left femoral artery was cannulated via modified Seldinger technique with placement of 6-[place] sheath. All catheters exchanged through this sheath. FINDINGS: The right coronary artery has 75% stenosis in mid vessel. This was addressed with a 3.0 x 34 mm Alexis stent. Result was 0% residual stenosis. OVERALL IMPRESSION: Successful percutaneous transluminal coronary angioplasty stent of the right coronary artery going from 75% initial stenosis to 0% residual. TRANSINT:[id number] Voice Confirmation ID: [id number] DOCUMENT ID: [id number] ANGUS LIRIANO MD at 1800 CC: [id number] DICTATION DATE: 03/09/17 0839 INCOMING FREIGHT CLERK: 03/09/17 1144 DIS IN 03/09/17 [facility] [address] [place] [address]
--- NOTE | ~2017-03-04 | HEMODYNAMI ---
PATIENT:CLARE PERRY MEDICAL RECORD: [id number] : 44 LOCATION:[facility], [place].[address]114 ADMISSION DATE: 03/04/17 Generatedon:03/05/201712:11 Patient name: CLARE PERRY Patient #: [id number] SSN: : 1940 Date of study: Page: Of Hemodynamic Procedure Report Patient Data Patient Demographics Procedure consent was obtained First Name: CLARE Gender: Male Last Name: ORLANDO : 1940 Middle Initial: L Age: 77 year(s) Patient #: [id number] Race: Unknown Additional ID: [id number] Contact details [address]: [address] [place] [address] State: [place] City: [place] Zip code: [address] Admission Admission Data Admission Date: 03/04/2017 Admission Time: 22:16 Room #: D.2114 Procedure Procedure Types Cath Procedure Diagnostic Procedure [facility] w/Coronaries Procedure Description Procedure Staff Name Function Satya Rios MD Performing Physician Nahum Burks RT Monitor Samara Young RT Scrub Oskar Kline RN Nurse Hemodynamics Rest Pre Cath Intra NCS Post Cath Procedure Log Time Note 11:36:18 Informed consent obtained and on chart 11:36:42 Diagnostic Cath status Elective 11:36:44 Oskar Kline RN sent for patient. Start room use. 11:36:44 Time tracking: Regular hours 11:36:48 Plan of Care:Hemodynamics will remain stable., Cardiac rhythm will remain stable., Comfort level will be maintained., Respiratory function will remain adequate., Patient/ family verbilizes understanding of procedure., Procedure tolerated without complication., Recovers from procedure without complications.. 11:38:58 H&P Date Dictated: 03/05/2017 Within 30 days and on chart.. 11:40:08 Lab Result : BUN 27 mg/dl 11:40:08 Lab Result : Creatinine 1.7 mg/dl 11:40:08 Lab Result : Hemoglobin 14.8 g/dl 11:40:08 Lab Result : Hematocrit 43.8 % 11:40:10 Lab results completed and on chart. 11:46:33 Patient received from Med II to CCL 3 Alert and oriented. Tansferred to table in Supine position. 11:46:35 Warm blankets applied, and janessa hugger turned on for patient comfort. 11:46:35 Correct patient and procedure confirmed by team. 11:46:59 ECG and BP/O2 sat monitors applied to patient. 11:47:03 Pre-procedure instructions explained to patient. 11:47:04 Pre-op teaching completed and patient verbalized understanding. 11:54:26 Procedure canceled due to pt having a 102.7 tempertature. 11:55:00 End room use (Document Last) Signature Audit [place] Stage Time Signature Unsigned Intra-Procedure 03/05/2017 Nahum Burks 12:11:05 PM RT(R) Signatures Monitor : Nahum Burks RT Signature : Date : Time : [place] [id number] [facility] [place] [address]
[~2017-03-04 20:16] MED LIST: ARTHROTEC 501 TAB.EC PO; ASPIRIN81 MG PO; ATENOLOL25 MG NG; BUMEX 1 MG TAB1 MG PO; CYTOTEC200 MCG PO; FLAGYL500 MG PO; FLOMAX0.4 MG PO; FORTAMET500 MG/BOT PO; GLUCOPHAGE500 MG PO; IPRAT-ALBUT 0.5-3 ML NEB; LEVAQUIN500 MG PO; LEXAPRO10 MG PO; NORCO 5/325 TAB1 TA1; NORCO 5/325 TAB1 TA1 PO; OXYBUTYNIN CHLOR5 MG PO; PRILOSEC20 MG PO; SORIATANE10 MG PO; SORIATANE25 MG PO; TENORMIN25 MG PO; VENTOLIN HFA18 GM INH; VIBRAMYCIN 100100 MG PO; ZOCOR80 MG PO
[2017-03-04 21:00] LABS: BASOPHILS 0.2 % (0-2); EOSINOPHILS 0.3 % (0-7); HEMATOCRIT 43.8 % (42.0-54.0); HEMOGLOBIN 14.8 g/dL (13.5-17.5); IMMATURE GRANULOCYTES 0.2 % (0-5); LYMPHOCYTES 16.9 % (15-50); MCH 30.3 pg (26.0-34.0); MCHC 33.8 g/dL (31.0-37.0); MCV 89.6 fL (80.0-100.0); MEAN PLATELET VOLUME 10.8 fL (7.4-10.4); MONOCYTES 5.6 % (2-11); NEUTROPHILS 76.8 % (40-80); PLATELET COUNT 222 10x3/uL (130-400); RBC 4.89 10x6/uL (4.20-6.10); RDW 16.4 % (11.5-14.5)
[2017-03-04 21:12] LABS: ALBUMIN 3.8 g/dL (3.4-5.0); ALKALINE PHOSPHATASE 91 U/L (46-116); ALT (SGPT) 21 U/L (10-68); BILIRUBIN - TOTAL 0.41 mg/dL (0.2-1.3); CALC OSMOLALITY 270 mosm/kg (275-300); CALCIUM 8.8 mg/dL (8.5-10.1); CARBON DIOXIDE 29.1 mmol/L (21.0-32.0); CHLORIDE - SERUM 99 mmol/L (98-107); CREATININE - SERUM 1.7 mg/dL (0.6-1.3); GLUCOSE 124 mg/dL (74-106); PROTEIN - SERUM 7.5 g/dL (6.4-8.2); SODIUM 132 mmol/L (136-145); UREA NITROGEN 27 mg/dL (7-18); eGFR NON AFRICAN AMERICAN 42 mL/min (90-120)
[2017-03-04 21:23] LABS: CHOL - HDL RATIO 3.8 ratio (2.3-4.9); CHOLESTEROL, TOTAL 121 mg/dL (0-200); CKMB 0.9 U/L (0.0-3.6); CREATINE KINASE 137 UL (21-232); HDL CHOLESTEROL 32 mg/dL (32-96); LDL CHOLESTEROL 59 mg/dL (0-100); LDL-HDL RATIO 1.8 ratio (1.5-3.5); TRIGLYCERIDE 150 mg/dL (30-200); TROPONIN-I < 0.017 ng/mL (0.000-0.060)
[2017-03-04] MEDS ORDERED: GABAPENTIN100 MG PO (23:37)
[2017-03-05] VITALS: BP 99/48
[2017-03-05 01:27] LABS: CKMB 0.5 U/L (0.0-3.6); CREATINE KINASE 116 UL (21-232); TROPONIN-I < 0.017 ng/mL (0.000-0.060)
[2017-03-05 04:00] VITALS: BP 109/58
[2017-03-05 06:43] LABS: CKMB 0.7 U/L (0.0-3.6); CREATINE KINASE 102 UL (21-232)
[2017-03-05 06:57] LABS: TROPONIN-I < 0.017 ng/mL (0.000-0.060)
[2017-03-05 08:23] LABS: BASOPHILS 0.2 % (0-2); EOSINOPHILS 0.2 % (0-7); HEMATOCRIT 41.6 % (42.0-54.0); IMMATURE GRANULOCYTES 0.2 % (0-5); LYMPHOCYTES 18.2 % (15-50); MCHC 33.7 g/dL (31.0-37.0); MCV 89.1 fL (80.0-100.0); MEAN PLATELET VOLUME 10.8 fL (7.4-10.4); MONOCYTES 11.7 % (2-11); NEUTROPHILS 69.5 % (40-80); PLATELET COUNT 204 10x3/uL (130-400); RBC 4.67 10x6/uL (4.20-6.10); RDW 16.2 % (11.5-14.5); WBC 4.9 10x3/uL (4.8-10.8)
[2017-03-05 08:43] LABS: ANION GAP 16.4 mmol/L (8-16); CALCIUM 8.5 mg/dL (8.5-10.1); CARBON DIOXIDE 23.5 mmol/L (21.0-32.0); CREATININE - SERUM 1.6 mg/dL (0.6-1.3); POTASSIUM - SERUM 3.9 mmol/L (3.5-5.1)
[2017-03-05 08:49] VITALS: BP 108/56
[2017-03-05 15:35] VITALS: BP 120/51
[2017-03-05 21:10] VITALS: BP 114/51
[2017-03-06 02:43] VITALS: BP 108/59
[2017-03-06 09:02] VITALS: BP 106/58
[2017-03-06 11:13] VITALS: BP 104/61
[2017-03-06] MEDS ORDERED: BUMEX 1 MG TAB1 MG PO (13:53)
[2017-03-06] MEDS ORDERED: OXYBUTYNIN CHLOR5 MG PO (13:53)
[2017-03-06] MEDS ORDERED: TESTOSTERON200 MG/ML IM (13:54)
[2017-03-06 16:11] LABS: APPEARANCE CLEAR (CLEAR); BILIRUBIN NEGATIVE (NEGATIVE); COLOR DK YELLOW (YELLOW); GLUCOSE NEGATIVE (NEGATIVE); KETONE NEGATIVE (NEGATIVE); NITRITE NEGATIVE (NEGATIVE); PROTEIN TRACE mg/dL (NEGATIVE); UROBILINOGEN NORMAL (NORMAL)
[2017-03-06 16:56] VITALS: BP 135/64
[2017-03-06] MEDS ORDERED: TENORMIN25 MG PO (18:01)
[2017-03-06] MEDS ORDERED: DICLOFENAC SODI50 MG PO (18:02)
[2017-03-06] MEDS ORDERED: CYTOTEC200 MCG PO (18:03)
[2017-03-06 20:00] VITALS: BP 121/56
[2017-03-07] VITALS: BP 117/72
[2017-03-07 04:00] VITALS: BP 127/66
[2017-03-07 05:25] LABS: BASOPHILS 0.3 % (0-2); EOSINOPHILS 0 % (0-7); HEMOGLOBIN 14.2 g/dL (13.5-17.5); IMMATURE GRANULOCYTES 0.3 % (0-5); LYMPHOCYTES 26.4 % (15-50); MCHC 34.6 g/dL (31.0-37.0); MEAN PLATELET VOLUME 10.6 fL (7.4-10.4); MONOCYTES 9.6 % (2-11); NEUTROPHILS 63.4 % (40-80); RBC 4.74 10x6/uL (4.20-6.10); RDW 16.1 % (11.5-14.5); WBC 3.9 10x3/uL (4.8-10.8)
[2017-03-07 05:37] LABS: MCV 86.5 fL (80.0-100.0); PLATELET COUNT 142 10x3/uL (130-400)
[2017-03-07 05:48] LABS: CALCIUM 8.1 mg/dL (8.5-10.1); CARBON DIOXIDE 24.3 mmol/L (21.0-32.0); CREATININE - SERUM 1.4 mg/dL (0.6-1.3)
[2017-03-07 05:52] LABS: POTASSIUM - SERUM 3.3 mmol/L (3.5-5.1)
[2017-03-07 08:01] VITALS: BP 100/63
[2017-03-07 11:26] VITALS: BP 131/66
[2017-03-07 15:52] VITALS: BP 120/71
[2017-03-07 20:00] VITALS: BP 132/78
[2017-03-08] VITALS: BP 111/58
[2017-03-08 04:00] VITALS: BP 111/70
[2017-03-08 05:44] LABS: BASOPHILS 0.3 % (0-2); EOSINOPHILS 0.5 % (0-7); HEMATOCRIT 42.3 % (42.0-54.0); HEMOGLOBIN 14.5 g/dL (13.5-17.5); LYMPHOCYTES 44.4 % (15-50); MCH 29.5 pg (26.0-34.0); MCHC 34.3 g/dL (31.0-37.0); MONOCYTES 11.7 % (2-11); NEUTROPHILS 43.1 % (40-80); PLATELET COUNT 159 10x3/uL (130-400); RBC 4.92 10x6/uL (4.20-6.10); RDW 16.1 % (11.5-14.5); WBC 3.9 10x3/uL (4.8-10.8)
[2017-03-08 06:06] LABS: CALCIUM 8.2 mg/dL (8.5-10.1); CARBON DIOXIDE 26.3 mmol/L (21.0-32.0); CREATININE - SERUM 1.2 mg/dL (0.6-1.3); POTASSIUM - SERUM 3.3 mmol/L (3.5-5.1)
[2017-03-08 08:20] VITALS: BP 124/72
[2017-03-08 12:19] VITALS: BP 112/72
[2017-03-08 13:44] VITALS: Ht 180.3 cm; Wt 108.0 kg
[2017-03-08 16:00] VITALS: BP 124/64
[2017-03-08 21:12] VITALS: BP 130/71
[2017-03-09 05:39] VITALS: BP 122/66
[2017-03-09 05:40] LABS: BASOPHILS 0.4 % (0-2); EOSINOPHILS 1.1 % (0-7); HEMATOCRIT 41.7 % (42.0-54.0); HEMOGLOBIN 14.3 g/dL (13.5-17.5); LYMPHOCYTES 41.1 % (15-50); MCH 29.9 pg (26.0-34.0); MCHC 34.3 g/dL (31.0-37.0); MCV 87.1 fL (80.0-100.0); MEAN PLATELET VOLUME 10.4 fL (7.4-10.4); MONOCYTES 13.8 % (2-11); NEUTROPHILS 43.6 % (40-80); PLATELET COUNT 181 10x3/uL (130-400); RBC 4.79 10x6/uL (4.20-6.10); RDW 16.7 % (11.5-14.5); WBC 4.6 10x3/uL (4.8-10.8)
[2017-03-09 05:52] LABS: ANION GAP 14.6 mmol/L (8-16); CALCIUM 7.9 mg/dL (8.5-10.1); CARBON DIOXIDE 25.2 mmol/L (21.0-32.0); CREATININE - SERUM 1.3 mg/dL (0.6-1.3); POTASSIUM - SERUM 3.8 mmol/L (3.5-5.1)
[2017-03-09] MEDS ORDERED: PLAVIX75 MG PO (10:45)
== END 2017-03-09 13:12 | disposition home or self-care (01) | DRG 247 ==
LOC: D.ER 20:16 → D.M2 22:16 → OBSVTIME 22:16 → D.M2 03-06 11:42
PROVIDERS: Emergency Medicine; Family Medicine; Internal Medicine Cardiovascular Disease; Internal Medicine Interventional Cardiology
PROC: 02703EZ Dilation of Coronary Artery, One Artery with Two Intraluminal Devices, Percutaneous Approach (ICD-10-PCS; principal; 2017-03-05)
PROC: B240ZZ3 Ultrasonography of Single Coronary Artery, Intravascular (ICD-10-PCS; 2017-03-05)
PROC: 4A023N7 Measurement of Cardiac Sampling and Pressure, Left Heart, Percutaneous Approach (ICD-10-PCS; 2017-03-05)
PROC: B2111ZZ Fluoroscopy of Multiple Coronary Arteries using Low Osmolar Contrast (ICD-10-PCS; 2017-03-05)
PROC: B2151ZZ Fluoroscopy of Left Heart using Low Osmolar Contrast (ICD-10-PCS; 2017-03-05)
PROC: 027034Z Dilation of Coronary Artery, One Artery with Drug-eluting Intraluminal Device, Percutaneous Approach (ICD-10-PCS; 2017-03-09)
DX: I25.110 Atherosclerotic heart disease of native coronary artery with unstable angina pectoris (principal); A93.8 Other specified arthropod-borne viral fevers; Z95.5 Presence of coronary angioplasty implant and graft; I10 Essential (primary) hypertension; E11.65 Type 2 diabetes mellitus with hyperglycemia; E78.5 Hyperlipidemia, unspecified; G47.33 Obstructive sleep apnea (adult) (pediatric)

== ENCOUNTER 2018-03-20 18:59 | Inpatient (IN) | payer MEDICARE, BC ==
[~2018-03-20] VITALS: Ht 180.3 cm; Wt 117.9 kg
[~2018-03-20 18:59] MED LIST changes: +DICLOFENAC SODI50 MG PO; +GABAPENTIN100 MG PO; +PLAVIX75 MG PO; +TESTOSTERON200 MG/ML IM
--- NOTE | 2018-03-20 19:14 | NUR ---
PT ARRIVED ON FLOOR VIA WC. SELF AMBULATED WITH STAND BESIDE ASSIST TO BED. ORIENTED TO ROOM AND CALL LIGHT. HISTORY AND ASSESSMENT PER FLOW SHEET. NO OTHER NEEDS VOICED AT THIS TIME.
--- NOTE | 2018-03-20 20:31 | NUR ---
IV SITED TO LEFT FA 20 GAUGE X6 STICKS WITH GOOD BLOOD RETURN NOTED.
--- NOTE | 2018-03-20 22:26 | NUR ---
CALLED HS ABOUT NEW MEDS ORDERED THAT NEED TO BE PULLED.
--- NOTE | 2018-03-20 23:30 | NUR ---
PLACED ON CPAP BY RT AT THIS TIME. I-16 E-8 O2 35% RATE 12.
[2018-03-21] VITALS (7 sets, daily range): BP systolic 107–132; BP diastolic 46–70; BMI 36.3
--- NOTE | 2018-03-21 00:06 | NUR ---
CALLED HS ABOUT PULLING PT ABX AND ORAL MEDS.
--- NOTE | 2018-03-21 05:15 | NUR ---
PT REFUSED ANY FURTHER CPAP AT THIS TIME. REPORTS HE WILL KEEP THE O2 IN AND WONT SLEEP ANY MORE. FURTHER REINFORCED THE NEED TO WEAR HIS CPAP AND TO HAVE HIS BRING HIS CPAP FROM HOME IF IT IS MORE COMFORTABLE. PT REPORTS HE TAKES HIS HOME ONE OFF MOST THE TIME WELL. INSTRUCTED THE PATIENT THAT THE CPAP ALARMED SEVERAL TIMES IN THE NIGHT THAT HE HAD APNEIC EPISODES PT STILL DOES NOT WANT THE CPAP AT THIS TIME.
--- NOTE | 2018-03-21 07:50 | NUR ---
PT SITTING UP IN BED. NO ACUTE DISTRESS NOTED. DROPLET ISOLATION IN PLACE. O2 @ 2L NC IN PLACE. DENIES FURTHER NEEDS AT THIS TIME. CL WITHIN REACH. ENCOURAGED TO CALL WITH NEEDS. WILL CONTINUE TO MONITOR.
--- NOTE | 2018-03-21 09:50 | NUR ---
PT SITTING UP IN BED WITH O2 NC ATTACHED, PT HAD REFUSED CPAP LAST NIGHT BUT ABLE OT KEEP NC IN. PT STATED HAS BEEN WEAK, ADVISED COLD BE DUE TO FLU AND PNUEMONIA PT RECENTLY HAD, NO NEEDS VOICED, CONTINUE WITH PLAN OF CARE
--- NOTE | 2018-03-21 11:44 | NUR ---
PT LYING IN BED WITH FAMILY AT BEDISDE, PT HAS BEEN SWEATING ALL MORNING AND FAMILY MEMBER STATED HE LOOKED LIKE HE HAD FEVER, CHECKED PT TEMP AND NO FEVER PER THERMOMETER. PT TEMP REGISTERED 98.4, ENCOURAGED PT TO DRINK MORE FLUIDS. CONTINUE WITH PLAN OF CARE
--- NOTE | 2018-03-21 11:58 | NUR ---
pt temp now 99.9, administered prn tylenol, continue with plan of care
--- NOTE | 2018-03-21 13:04 | NUR ---
COLLECTED PT FLU CULTURE FOR LAB, NO OTHER NEEDS VOICED, CONTINUE WITH PLAN OF CARE
[2018-03-21 13:21] LABS: BASOPHILS 0.3 % (0-2); EOSINOPHILS 0.8 % (0-7); HEMATOCRIT 44.7 % (42.0-54.0); HEMOGLOBIN 15.3 g/dL (13.5-17.5); IMMATURE GRANULOCYTES 2.5 % (0-5); LYMPHOCYTES 25.3 % (15-50); MCH 29.3 pg (26.0-34.0); MCHC 34.2 g/dL (31.0-37.0); MCV 85.5 fL (80.0-100.0); MEAN PLATELET VOLUME 9.6 fL (7.4-10.4); MONOCYTES 8.1 % (2-11); PLATELET COUNT 213 10x3/uL (130-400); RBC 5.23 10x6/uL (4.20-6.10); RDW 16.3 % (11.5-14.5); WBC 3.6 10x3/uL (4.8-10.8)
[2018-03-21 13:49] LABS: ALBUMIN 2.5 g/dL (3.4-5.0); ANION GAP 15.7 mmol/L (8-16); BILIRUBIN - TOTAL 0.29 mg/dL (0.2-1.3); CARBON DIOXIDE 24.9 mmol/L (21.0-32.0); CREATININE - SERUM 1.7 mg/dL (0.6-1.3); POTASSIUM - SERUM 3.6 mmol/L (3.5-5.1); PROTEIN - SERUM 6.5 g/dL (6.4-8.2)
[2018-03-21 18:39] LABS: APPEARANCE CLEAR (CLEAR); BILIRUBIN NEGATIVE (NEGATIVE); COLOR YELLOW (YELLOW); GLUCOSE NEGATIVE (NEGATIVE); KETONE NEGATIVE (NEGATIVE); NITRITE NEGATIVE (NEGATIVE); PROTEIN NEGATIVE (NEGATIVE); UROBILINOGEN NORMAL (NORMAL)
--- NOTE | 2018-03-21 20:00 | NUR ---
ASSESSMENT PER FLOWSHEET. IV PATENT LEFT FOREARM OF 1/2NS AT 75CC'S/HR SITE CLEAR. O2 ON 2 L/M PER NC. NO DISTRESS. PT IN DROPLET ISOLATION. INC BM. COMPLETE BED BATH WITH LINENS CHANGED. SCD'S REMOVED SOILDED WITH STOOL. SR UP X2 CALL LIGHT WITHIN REACH.
--- NOTE | 2018-03-21 21:15 | NUR ---
MEDS GIVEN PER MAR. BCGU=[id number]. NO COVERAGE NEEDED.
--- NOTE | 2018-03-22 | NUR ---
EYES CLOSSED RESPIRATIONS WITH EASE AND UNLABORED.
--- NOTE | 2018-03-22 02:00 | NUR ---
PT PULLED OUT IV RESITED TO LEFT FOREARM #20 G X1 ATTEMPT RESUMED IV FLUIDS.
[2018-03-22 02:14] VITALS: BP 105/56
[2018-03-22 04:32] VITALS: BP 115/76
[2018-03-22 05:58] LABS: BASOPHILS 0.4 % (0-2); EOSINOPHILS 0.6 % (0-7); HEMOGLOBIN 15.2 g/dL (13.5-17.5); IMMATURE GRANULOCYTES 0.8 % (0-5); LYMPHOCYTES 36.5 % (15-50); MCH 28.8 pg (26.0-34.0); MCHC 33.8 g/dL (31.0-37.0); MCV 85.4 fL (80.0-100.0); MEAN PLATELET VOLUME 10.4 fL (7.4-10.4); MONOCYTES 7.1 % (2-11); NEUTROPHILS 54.6 % (40-80); PLATELET COUNT 223 10x3/uL (130-400); RBC 5.27 10x6/uL (4.20-6.10); RDW 16.4 % (11.5-14.5)
[2018-03-22 06:14] LABS: ANION GAP 14.8 mmol/L (8-16); CARBON DIOXIDE 25.7 mmol/L (21.0-32.0); CREATININE - SERUM 1.7 mg/dL (0.6-1.3); POTASSIUM - SERUM 3.5 mmol/L (3.5-5.1)
--- NOTE | 2018-03-22 06:15 | NUR ---
MEDS GIVEN PER MAR. [id number] NO COVERAGE.
[2018-03-22 06:16] LABS: WBC 4.9 10x3/uL (4.8-10.8)
[2018-03-22 09:38] VITALS: BP 112/53
--- NOTE | 2018-03-22 11:37 | NUR ---
PT SPOUSE STITING AT BEDSIDE INQUIRED ON WHY PT IS IN DROPLET STILL IF FLUIS NEGATIVE, ADVISED FOR PRECAUTIINARY MEASURES, PT STILL HAS SYMPTOMS AND STILL ON TAMIFLU THEREFORE PT WILL STILL BE ON FLU PRECAUTIONS. CL IN REACH BED IN LOWEST POSITON CONTINUE WITH PLAN OF CARE
[2018-03-22 12:04] VITALS: BP 134/70
--- NOTE | 2018-03-22 13:37 | NUR ---
BLADDER SCANNED PT, PT HAD 337 IN BLADDER, ATTEMPTED CATHETER, UNABLE TO INSERT, ASKED COWORKER TO ASSIST. CONTINUE WITH PLAN OF CARE
--- NOTE | 2018-03-22 14:47 | MORECARE ---
CASE MANAGEMENT DISCHARGE SUMMARY PATIENT: CLARE DOUGLASS UNIT: [id number] ADM DATE: 03/21/18 AGE: 78 : 42 SEX: M ROOM/BED: D.2224 AUTHOR: RACHEL TRIVEDI PHYSICIAN: REFERRING PHYSICIAN: PAULO SELBY MD DATE OF SERVICE: 03/22/18 Discharge Plan Patient Name: CLARE DOUGLASS [facility] : 1940 Planned Disposition: Home Anticipated Discharge Date: Discharge Date: Expected LOS: Initial Reviewer: [email or web address] Initial Review Date: 03/22/2018 Generated: 03/22/18 3:47 pm DCPIA - Discharge Planning Initial Assessment Updated by [email or web address]: Roxana Ruggiero on 03/22/18 2:46 pm * Is the patient Alert and Oriented? Yes * How many steps to enter\exit or inside your home? 04/08 flight * PCP Dr. Selby * [facility] * Preadmission Environment Home with Family * ADLs Independent * Equipment CPAP Oxygen * List name and contact numbers for known caregivers / representatives who currently or will assist patient after discharge: Jasmyn Douglass - spouse - [phone] * Verbal permission to speak to the caregivers and representatives has been obtained from the patient. Yes * Community resources currently utilized None * Please name any agencies selected above. DME choice is [facility] * Additional services required to return to the preadmission environment? No * Can the patient safely return to the preadmission environment? Yes * Has this patient been hospitalized within the prior 30 days at any hospital? No Patient Name: CLARE DOUGLASS Page [phone] at 1447 All edits/amendments must be made on the electronic document DICTATION DATE: 03/22/18 1447 NARROW FABRICS WEAVER: GERARDO 03/22/18 1447 RPT#: [id number] DC DATE: STATUS: ADM IN [facility] [address] [place] [address] END OF REPORT
--- NOTE | 2018-03-22 14:54 | MORECARE ---
CASE MANAGEMENT DISCHARGE SUMMARY PATIENT: CLARE DOUGLASS UNIT: [id number] ADM DATE: 03/21/18 AGE: 78 : 42 SEX: M ROOM/BED: D.2224 AUTHOR: FAROOQDOC PHYSICIAN: REFERRING PHYSICIAN: PAULO SELBY MD DATE OF SERVICE: 03/22/18 Discharge Plan Patient Name: CLARE DOUGLASS Facility: [facility]:[place] : 1940 Planned Disposition: Home Anticipated Discharge Date: Discharge Date: Expected LOS: Initial Reviewer: [email or web address] Initial Review Date: 03/22/2018 Generated: 03/22/18 3:54 pm Comments DCP- Discharge Planning Updated by [email or web address]: Roxana Ruggiero on 03/22/18 1:[address] Patient Name: CLARE DOUGLASS Admission Status: Elective Accout number: [id number] Admission Date: 03-21-2018 : 1940 Admission Diagnosis: Attending: PAULO SELBY Current LOS: 1 Anticipated DC Date: Planned Disposition: Home Primary Insurance: MEDICARE A & B Discharge Planning Comments: CM met with patient to discuss discharge planning, he is alone in the room. He states he lives in a 2 story home with his . He states he stays on the first floor ("I haven't been upstairs in 8 years"). States he is independent with all ADL's. States "I'm still working". States his CPAP and oxygen supply came from [facility]. States he does not wear oxygen, it is just for his CPAP. Denies need for DME or home health services. CM will continue to follow and assist with discharge planning/needs. Client Advocate: Roxana Ruggiero DCPIA - Discharge Planning Initial Assessment Updated by [email or web address]: Roxana Ruggiero on 03/22/18 2:46 pm * Is the patient Alert and Oriented? Yes * How many steps to enter\\exit or inside your home? 04/08 flight * PCP Dr. Selby * [facility] * Preadmission Environment Home with Family * ADLs Independent * Equipment CPAP Oxygen * List name and contact numbers for known caregivers / representatives who currently or will assist patient after discharge: Jasmyn Douglass - [facility] - [phone] * Verbal permission to speak to the caregivers and representatives has been obtained from the patient. Yes * Community resources currently utilized None * Please name any agencies selected above. DME choice is [facility] * Additional services required to return to the preadmission environment? No * Can the patient safely return to the preadmission environment? Yes * Has this patient been hospitalized within the prior 30 days at any hospital? No Last DP export: 03/22/18 1:47 p Patient Name: CLARE DOUGLASS Page [phone] at 1454 All edits/amendments must be made on the electronic document DICTATION DATE: 03/22/181453 VARNISHING UNIT OPERATOR: GERARDO 03/22/181453 RPT#: [id number] DC DATE: STATUS: ADM IN [facility] [address] [place] [address] END OF REPORT
--- NOTE | 2018-03-22 15:08 | NUR ---
PENA CATHER ATTEMPTED BY 2 OTHER RN'S MET RESISTANCE UNABLE TO PLACE CATHETER, I CALLED [employer] FOR A CUDE, HAD RN RENETTA ASSIST WITH CUDE ABLE TO OBTAIN ACCESS, ADMNISTERED PRN COUGH MEDICATION, PT STATED SHE FEELS BETTER, CONTINUE WITH PLAN OF CARE
[2018-03-22 17:24] VITALS: BP 180/52
--- NOTE | 2018-03-22 19:50 | NUR ---
PT C/O BLADDER SPASMS STATING HURTS REAL BAD, ADVISED PT DR COELLO ORDERD MEDICINE FOR BLADDER SPASMS AND I HAVE REFFERD TO NIGHT NURSE FOR ADMINISTRATION DUE TO MEDS ARE TIMED. PT STATED HE WILL OT BE ABLE TO SLEEP AND IS VERY ANGRY, TRIED TO CALM PT DOWN WILL PASS MESSAGE TO PM NURSE TO CALL DR KRAUSE IF NEEDED
--- NOTE | 2018-03-22 20:10 | NUR ---
PT IS RESTING IN BED WITH EYES CLOSED. RESPIRATIONS AR EVEN AND UNLABORED. PT IS EASILY AROUSED WITH VERBAL STIMULATION. PT DENIES PRESENCE OF DYSNPNEA AT THIS TIME. BED IS IN THE LOWEST POSITION. CALL LIGHT AND BEDSIDE TABLE ARE WITHIN REACH. PT DENIES FURTHER NEEDS AT THIS TIME.
[2018-03-22 21:09] VITALS: BP 134/79
--- NOTE | 2018-03-22 23:30 | NUR ---
AWAKE,COMPLAINTS OF PAIN. DILAUDID 1 MG GIVEN IV PER ORDERS..URINE REMAINS BLOOD TINGED. ENCOURAGED PATIENT TO DRINK PLENTY OF FLUIDS. IV INFUSING TO LFA WITHOUT REDNESS OR EDEMA NOTED. CL IN REACH.
--- NOTE | 2018-03-22 23:45 | NUR ---
EYES CLOSED. RESP EVEN AND UNALBORED.NO DISTRESS NOTED. CL IN REACH
--- NOTE | 2018-03-23 00:47 | NUR ---
PATIENT CONTINUES TO COMPLAIN OF BLADDER SPASMS AND HOLLERING OUT. CALL PLACED TO DR ALEXANDRE WITH ORDERS RECIEVED.
--- NOTE | 2018-03-23 00:52 | NUR ---
X-RAY HERE.WAITING RESULTS. PATIENT CALMER AT THIS TIME.
[2018-03-23 01:03] VITALS: BP 119/68
--- NOTE | 2018-03-23 02:42 | NUR ---
RESTING IN BED NO APPARENT DISTRESS. CALL LIGHT IN REACH
[2018-03-23 04:48] VITALS: BP 124/80
--- NOTE | 2018-03-23 05:24 | NUR ---
patient resting quielty. no distress noted. o2 @ 2L on. urine remains blood tinged. cl in reach
[2018-03-23 06:12] LABS: BASOPHILS 0.3 % (0-2); EOSINOPHILS 1.4 % (0-7); HEMATOCRIT 45.3 % (42.0-54.0); HEMOGLOBIN 15.3 g/dL (13.5-17.5); IMMATURE GRANULOCYTES 0.3 % (0-5); LYMPHOCYTES 31.1 % (15-50); MCH 28.9 pg (26.0-34.0); MCHC 33.8 g/dL (31.0-37.0); MCV 85.6 fL (80.0-100.0); MEAN PLATELET VOLUME 10.1 fL (7.4-10.4); MONOCYTES 11.4 % (2-11); NEUTROPHILS 55.5 % (40-80); PLATELET COUNT 222 10x3/uL (130-400); RBC 5.29 10x6/uL (4.20-6.10); RDW 16.3 % (11.5-14.5)
[2018-03-23 06:18] LABS: WBC 6.2 10x3/uL (4.8-10.8)
[2018-03-23 06:42] LABS: ANION GAP 14.7 mmol/L (8-16); CARBON DIOXIDE 26.3 mmol/L (21.0-32.0); CREATININE - SERUM 1.4 mg/dL (0.6-1.3)
--- NOTE | 2018-03-23 08:14 | NUR ---
RESTING IN BED./ AROUSED BY VERBAL STIMULI. NO S/S OF ACUTE DISTRESS. CL IN PLACE.
[2018-03-23 09:00] VITALS: BP 136/82
[2018-03-23 13:39] VITALS: BMI 36.2
[2018-03-23 13:56] VITALS: BP 111/61
[2018-03-23 17:11] VITALS: Ht 180.3 cm; Wt 117.9 kg
[2018-03-23 17:12] VITALS: BP 116/69
--- NOTE | 2018-03-23 18:41 | NUR ---
IV LEAKING. DC IV WITH TIP INTACT. RESITED IV TO R FOREARM. FLUSHED WELL. NO REDDNESS OR SWELLING NOTED .PT SITTING UP WATCHING THE NEWS. NO S/S OF ACUTE DISTRESS. CL IN PLACE.
--- NOTE | 2018-03-23 21:35 | NUR ---
PATIENT COMPLAINING OF BLADDER SPASMS. DILAUDID 1 MG GIVEN IV PER ORDERS. 1 MG WASTED WITH H SASHA CUSTOMER SERVICE SUPERVISOR. IV TO RFA INTACT WITHOUT REDNESS OR EDEMA NOTED. FOLELY PATENT AND DRAINING CLEAR URINE. CL IN REACH.
[2018-03-24 04:00] VITALS: BP 124/68
--- NOTE | 2018-03-24 05:32 | NUR ---
PT IN BED IN LOW FOWLERS POSITION. ALERT AND ORIENTED X4. VITAL SIGNS STABLE AND AFEBRILE. NO VISUAL CUES OF DISTRESS NOTED. DENIES ANY OTHER NEEDS AT THIS TIME. BED LOW, SIDE RAILS UP X2. CALL LIGHT IN REACH. WILL CONTINUE TO MONITOR.
[2018-03-24 05:58] LABS: BASOPHILS 0.3 % (0-2); EOSINOPHILS 2.6 % (0-7); HEMATOCRIT 44.5 % (42.0-54.0); IMMATURE GRANULOCYTES 0.5 % (0-5); LYMPHOCYTES 25.7 % (15-50); MCH 28.8 pg (26.0-34.0); MCHC 33.7 g/dL (31.0-37.0); MCV 85.4 fL (80.0-100.0); MEAN PLATELET VOLUME 10.4 fL (7.4-10.4); MONOCYTES 10.3 % (2-11); NEUTROPHILS 60.6 % (40-80); PLATELET COUNT 241 10x3/uL (130-400); RBC 5.21 10x6/uL (4.20-6.10); RDW 16.3 % (11.5-14.5); WBC 6.4 10x3/uL (4.8-10.8)
--- NOTE | 2018-03-24 06:12 | NUR ---
LYING QUIELTY. NO DISTRESS NOTED. RESP UNLABORED. CL IN REACH
[2018-03-24 06:33] LABS: ANION GAP 14.4 mmol/L (8-16); CALCIUM 8.5 mg/dL (8.5-10.1); CARBON DIOXIDE 25.3 mmol/L (21.0-32.0); CREATININE - SERUM 1.3 mg/dL (0.6-1.3); POTASSIUM - SERUM 3.7 mmol/L (3.5-5.1); VANCOMYCIN - TROUGH 13.6 ug/mL (10.0-20.0)
[2018-03-24 08:38] VITALS: BP 140/65
--- NOTE | 2018-03-24 08:46 | NUR ---
PT RESTING WITH EYES CLOSED. AROUSED BY VERBAL STIMULI. NO S/S OF ACUTE DISTRESS. CL IN PLACE.
--- NOTE | 2018-03-24 14:20 | NUR ---
PER JORDYN INFECTION CONTROL NURSE, ISOLATION CAN BE DC. NO S/S OF ACUTE DISTRESS. CL IN PLACE.
[2018-03-24 16:30] VITALS: BP 106/66
--- NOTE | 2018-03-24 18:21 | NUR ---
PT RESTING IN BED. NO S/S OF ACUTE DISTRESS. CL IN PLACE.
--- NOTE | 2018-03-24 19:00 | NUR ---
BEDSIDE REPORT RECEIVED AND CARE OF PT ASSUMED. PT LYING IN SUPINE POSITION WITH EYES CLOSED. O2 IN USE VIA NC AT 2L. IV IN RIGHT FA PATENT WITH 1/2 NS INFUSING AT KVO. PENA CATHETER DRAINING TO GRAVITY WITH ORANGE URING IN COLLECTION BAG, WILL MONITOR FOR NEEDS.
[2018-03-24 20:00] VITALS: BP 142/66
--- NOTE | 2018-03-24 21:08 | NUR ---
HS MEDICATIONS GIVEN TO INCLUDE ATIVAN AND RESTORIL PER REQUEST FOR ANXIETY AND SLEEP. WILL CONTINUE TO MONITOR FOR NEEDS.
--- NOTE | 2018-03-24 21:15 | NUR ---
BIPAP PLACED ON PT BY RT PER ORDER.
[2018-03-25] VITALS: BP 180/81
[2018-03-25 06:27] LABS: BASOPHILS 0.3 % (0-2); EOSINOPHILS 3.3 % (0-7); HEMATOCRIT 44.2 % (42.0-54.0); HEMOGLOBIN 14.9 g/dL (13.5-17.5); IMMATURE GRANULOCYTES 0.8 % (0-5); MCH 28.8 pg (26.0-34.0); MCHC 33.7 g/dL (31.0-37.0); MCV 85.5 fL (80.0-100.0); MEAN PLATELET VOLUME 9.9 fL (7.4-10.4); MONOCYTES 10.2 % (2-11); NEUTROPHILS 64.4 % (40-80); PLATELET COUNT 276 10x3/uL (130-400); RBC 5.17 10x6/uL (4.20-6.10); RDW 15.9 % (11.5-14.5); WBC 6.4 10x3/uL (4.8-10.8)
[2018-03-25 06:36] LABS: ANION GAP 13.3 mmol/L (8-16); CALCIUM 8.2 mg/dL (8.5-10.1); CARBON DIOXIDE 27.7 mmol/L (21.0-32.0); CREATININE - SERUM 1.2 mg/dL (0.6-1.3)
--- NOTE | 2018-03-25 07:48 | NUR ---
PT LAYING IN BED RESTING WITH EYES OPEN. RESPIRATIONS EVEN AND UNLABORED, NO S/S OF DISTRESS. O2 NOTED AT 2L VIA NC. PT WEARS BIPAP AT NIGHT. IV INFUSING TO RIGHT FA, NO REDNESS OR EDEMA NOTED. PENA CATHETER NOTED, OUTPUT COLOR IS ORANGE. DENIES NEEDS. BED LOW AND LOCKED, SR UP X2, CL IN EASY REACH. WILL CONTINUE TO MONITOR.
--- NOTE | 2018-03-25 09:39 | NUR ---
DELIVERY CREW WORKER NOTE-NO COMPLAINTS AT PRESENT. STATES IS FEELING BETTER TODAY AND HAD SLEEP LAST NIGHT. REMAINS ON OXYGEN. ENCOURAGED TO BE UP IN CHAIR AT BEDSIDE TODAY FOR STRENGTHENING-STATES HE WILL. CALL LIGHT IN REACH
[2018-03-25 10:04] VITALS: BP 133/86
[2018-03-25 14:49] VITALS: BP 132/71
--- NOTE | 2018-03-25 15:33 | MORECARE ---
CASE MANAGEMENT DISCHARGE SUMMARY PATIENT: CLARE DOUGLASS UNIT: [id number] ADM DATE: 03/21/18 AGE: 78 : 42 SEX: M ROOM/BED: D.2224 AUTHOR: FAROOQ,DOC PHYSICIAN: REFERRING PHYSICIAN: PAULO SELBY MD DATE OF SERVICE: 03/25/18 Discharge Plan Patient Name: CLARE DOUGLASS Facility: [facility]:[place] : 1940 Planned Disposition: Home Anticipated Discharge Date: Discharge Date: Expected LOS: Initial Reviewer: [email or web address] Initial Review Date: 03/22/2018 Generated: 03/25/18 4:33 pm Comments DCP- Discharge Planning Updated by [email or web address]: Roxana Ruggiero on 03/25/18 2:[address] Met with , patient is sleeping. states they will not need home health on discharge. States he still works every day. Declines need for further DME. No needs identified. CM will continue to follow and assist with discharge planning/needs. DCP- Discharge Planning Updated by [email or web address]: Roxana Ruggiero on 03/22/18 1:[address] Patient Name: CLARE DOUGLASS Admission Status: Elective Accout number: [id number] Admission Date: 03-21-2018 : 1940 Admission Diagnosis: Attending: PAULO SELBY Current LOS: 1 Anticipated DC Date: Planned Disposition: Home Primary Insurance: MEDICARE A & B Discharge Planning Comments: CM met with patient to discuss discharge planning, he is alone in the room. He states he lives in a 2 story home with his . He states he stays on the first floor ("I haven't been upstairs in 8 years"). States he is independent with all ADL's. States "I'm still working". States his CPAP and oxygen supply came from [facility]. States he does not wear oxygen, it is just for his CPAP. Denies need for DME or home health services. CM will continue to follow and assist with discharge planning/needs. Breakfast Attendant: Roxana Ruggiero DCPIA - Discharge Planning Initial Assessment Updated by [email or web address]: Roxana Ruggiero on 03/22/18 2:46 pm * Is the patient Alert and Oriented? Yes * How many steps to enter\\exit or inside your home? 04/08 flight * PCP Dr. Selby * [facility] * Preadmission Environment Home with Family * ADLs Independent * Equipment CPAP Oxygen * List name and contact numbers for known caregivers / representatives who currently or will assist patient after discharge: Jasmyn Douglass - spouse - [phone] * Verbal permission to speak to the caregivers and representatives has been obtained from the patient. Yes * Community resources currently utilized None * Please name any agencies selected above. DME choice is [facility] * Additional services required to return to the preadmission environment? No * Can the patient safely return to the preadmission environment? Yes * Has this patient been hospitalized within the prior 30 days at any hospital? No Last DP export: 03/22/18 1:54 p Patient Name: CLARE DOUGLASS Page [phone] at 1533 All edits/amendments must be made on the electronic document DICTATION DATE: 03/25/181532 ELECTRICAL TEST ENGINEER: GERARDO 03/25/18 153 RPT#: [id number] DC DATE: STATUS: ADM IN [facility] [address] [place] [address] END OF REPORT
--- NOTE | 2018-03-25 16:53 | NUR ---
IV REMOVED TO RIGHT FOREARM, TIP INTACT. IV RESITED TO LEFT FOREARM X2 STICKS, DENIES NEEDS AT THIS TIME. CL IN EASY REACH.
[2018-03-25 17:36] VITALS: BP 135/75
--- NOTE | 2018-03-25 19:00 | NUR ---
REPORT RECEIVED AND CARE OF PT ASSUMED. PT LYING IN SUPINE POSITION WATCHING TV. IV IN RIGHT FA INFILTRATED...STOPPED AND WILL RE-SITE.
--- NOTE | 2018-03-25 19:15 | NUR ---
REMOVED IV IN RIGHT FA WITH CATHETER TIP INTACT. RE-SITED TO RIGHT FA USING 20 GUAGE CATHETER IN ONE STICK. IV FLUIDS RE-STARTED AT KVO.
[2018-03-25 20:00] VITALS: BP 133/77
--- NOTE | 2018-03-25 22:04 | NUR ---
HS MEDICATIONS GIVEN. FSBS 129 THIS CHECK REQUIRING NO COVERAGE PER SLIDING SCALE. GAVE PRN RESTORIL AND ATIVAN PER REQUEST FOR ANXIETY AND SLEEP.
[2018-03-26] VITALS: BP 133/77
[2018-03-26 04:00] VITALS: BP 125/64
[2018-03-26 07:19] LABS: BASOPHILS 0.3 % (0-2); EOSINOPHILS 2.9 % (0-7); HEMATOCRIT 44.1 % (42.0-54.0); IMMATURE GRANULOCYTES 1.1 % (0-5); LYMPHOCYTES 20.6 % (15-50); MCH 29.2 pg (26.0-34.0); MEAN PLATELET VOLUME 10.7 fL (7.4-10.4); NEUTROPHILS 65.1 % (40-80); PLATELET COUNT 307 10x3/uL (130-400); RBC 5.13 10x6/uL (4.20-6.10); RDW 15.9 % (11.5-14.5); WBC 7.2 10x3/uL (4.8-10.8)
[2018-03-26 07:29] LABS: CALCIUM 8.5 mg/dL (8.5-10.1); CARBON DIOXIDE 27.5 mmol/L (21.0-32.0); CREATININE - SERUM 1.4 mg/dL (0.6-1.3); POTASSIUM - SERUM 3.5 mmol/L (3.5-5.1)
--- NOTE | 2018-03-26 08:20 | NUR ---
PT LAYING IN BED RESTING WITH EYES CLOSED, AWOKEN EASILY TO VERBAL. PT IS CURRENTLY ON 2L OF O2 VIA NC, WEARS BIPAP AT NIGHT. RESPIRATIONS EVEN AND UNLABORED, NO S/S OF DISTRESS NOTED. LUNGS CLEAR TO AUSCULTATION. PENA NOTED ON PT, URINE ORANGE FROM PYRIDIUM AND GOOD OUTPUT NOTED. DENIES NEEDS AT THIS TIME. BED LOW AND LOCKED, SR UP X2, CL IN EASY REACH.
[2018-03-26 10:58] VITALS: BP 139/72
[2018-03-26 14:18] VITALS: BP 119/75
--- NOTE | 2018-03-26 16:01 | NUR ---
PT LAYING IN BED RESTING WITH EYES CLOSED, AT BEDSIDE. VOICES NO NEEDS AT THIS TIME. CL IN EASY REACH.
[2018-03-26 17:57] VITALS: BP 118/70
--- NOTE | 2018-03-26 19:10 | NUR ---
BEDSIDE REPORT RECEIVED AND CARE OF PT ASSUMED. PT LYING IN HIGH KAUFFMAN'S POSITION WATCHING TV. IV IN RIGHT FA PATENT WITH NS INFUSING AT 30 ML / HR. O2 IN US VIA NC AT 2L. PENA CATHETER DRAINING TO GRAVITY WITH ORANGE URINE IN COLLECTION BAG. WILL MONITOR FOR NEEDS.
[2018-03-26 20:00] VITALS: BP 163/64
--- NOTE | 2018-03-26 20:59 | NUR ---
HS MEDICATIONS GIVEN TO INCLUDE RESTORIL AND ATIVAN FOR SLEEP AND ANXIETY. WILL MONITOR FOR EFFECTIVENESS. SIDE RAILS UP X2 FOR SAFETY.
--- NOTE | 2018-03-26 21:00 | NUR ---
FSBS 110 THIS CHECK REQUIRING NO COVERAGE PER SLIDING SCALE.
--- NOTE | 2018-03-26 22:45 | NUR ---
RT HERE PLACING PT ON BIPAP.
[2018-03-27] VITALS: BP 124/84
[2018-03-27 04:00] VITALS: BP 104/69
--- NOTE | 2018-03-27 07:36 | NUR ---
PT LAYING IN BED RESTING WITH EYES CLOSED, O2 NOTED @ 2L VIA NC, PT WEARS BIPAP AT NIGHT. RESPIRATIONS ARE EVEN AND UNLABORED, NO S/S OF DISTRESS NOTED. TRACE EDEMA NOTED IN BILAT LOWER EXTREMITIES. IV INFUSING TO RIGHT FA, PATENT AND SWAB CAPS IN USE. NO REDNESS OR EDEMA NOTED AT IV SITE. PENA NOTED, GOOD OUTPUT, URINE ORANGE DUE TO PYRIDIUM. DENIES NEEDS AT THIS TIME. BED LOW AND LOCKED, SR UP X2, CL IN EASY REACH.
[2018-03-27 08:45] LABS: BASOPHILS 0.4 % (0-2); EOSINOPHILS 2.5 % (0-7); HEMATOCRIT 44.8 % (42.0-54.0); HEMOGLOBIN 15.1 g/dL (13.5-17.5); IMMATURE GRANULOCYTES 1.5 % (0-5); LYMPHOCYTES 21.2 % (15-50); MCHC 33.7 g/dL (31.0-37.0); MCV 86.2 fL (80.0-100.0); MEAN PLATELET VOLUME 10.2 fL (7.4-10.4); MONOCYTES 11.1 % (2-11); NEUTROPHILS 63.3 % (40-80); PLATELET COUNT 381 10x3/uL (130-400); RDW 15.9 % (11.5-14.5); WBC 9.1 10x3/uL (4.8-10.8)
[2018-03-27 08:58] LABS: ANION GAP 16.3 mmol/L (8-16); CALCIUM 8.9 mg/dL (8.5-10.1); CARBON DIOXIDE 26.5 mmol/L (21.0-32.0); CREATININE - SERUM 1.4 mg/dL (0.6-1.3); POTASSIUM - SERUM 3.8 mmol/L (3.5-5.1)
[2018-03-27 09:27] VITALS: BP 134/69
[2018-03-27 13:20] VITALS: BP 120/59
--- NOTE | 2018-03-27 16:23 | NUR ---
PT LAYING IN BED RESTING, IV REMOVED TO RIGHT FOREARM DUE TO IT BEING A LITTLE UNCOMFORTABLE FOR THE PT AND IV FLUIDS BEING D/C'D. TIP INTACT, DENIES FURTHER NEEDS. CL IN EASY REACH.
--- NOTE | 2018-03-27 16:35 | NUR ---
PATIENT IN BED WITH EYES CLOSED RESTING QUIETLY. IV INTACT. O2 ON. NO COMPLAINTS OR SIGNS OF DISTRESS. CALL LIGHT WITHIN REACH.
[2018-03-27 17:02] VITALS: BP 111/62
[2018-03-27 19:00] VITALS: BP 109/75
--- NOTE | 2018-03-27 19:00 | NUR ---
BEDSIDE REPORT RECEIVED AND CARE OF PT ASSUMED. PT LYING IN SUPINE POSITION WATCHING TV. NO IV AT THIS TIME. PENA CATHETER DRAINING TO GRAVITY WITH ORANGE URINE IN COLLECTION BAG. WILL MONITOR FOR NEEDS.
--- NOTE | 2018-03-27 21:23 | NUR ---
HS MEDICATIONS GIVEN TO INCLUDE ATIVAN AND RESTORIL PO PER REQUEST FOR SLEEP. FSBS 133 THIS CHECK REQUIRING NO COVERAGE VIA SLIDING SCALE. WILL CONTINUE TO MONITOR FOR NEEDS.
[2018-03-28] VITALS: BP 115/65
[2018-03-28 03:00] VITALS: BP 105/53
[2018-03-28 06:53] LABS: BASOPHILS 0.4 % (0-2); HEMATOCRIT 46.3 % (42.0-54.0); HEMOGLOBIN 15.6 g/dL (13.5-17.5); LYMPHOCYTES 22.6 % (15-50); MCH 29.2 pg (26.0-34.0); MCHC 33.7 g/dL (31.0-37.0); MCV 86.5 fL (80.0-100.0); MEAN PLATELET VOLUME 10.3 fL (7.4-10.4); MONOCYTES 9.8 % (2-11); NEUTROPHILS 62.2 % (40-80); PLATELET COUNT 405 10x3/uL (130-400); RBC 5.35 10x6/uL (4.20-6.10); RDW 15.9 % (11.5-14.5)
[2018-03-28 07:04] LABS: CALCIUM 9.1 mg/dL (8.5-10.1); CARBON DIOXIDE 24.7 mmol/L (21.0-32.0); CREATININE - SERUM 1.5 mg/dL (0.6-1.3); POTASSIUM - SERUM 3.7 mmol/L (3.5-5.1)
--- NOTE | 2018-03-28 07:15 | NUR ---
MORNING ASSESSMENT COMPLETE. SEE ASSESSMENT FLOWSHEET FOR FURTHER DETAILS. PT LYING IN BED AAO X4 TO PERSON, PLACE, TIME, AND SITUATION. DENIES NEEDS AT THIS TIME. CL IN REACH
[2018-03-28 08:07] VITALS: BP 146/70
[2018-03-28 12:11] VITALS: BP 91/64
[2018-03-28] MEDS ORDERED: LEVAQUIN750 MG PO (14:35)
[2018-03-28] MEDS ORDERED: FLOMAX0.4 MG PO (14:35)
[2018-03-28] MEDS ORDERED: ROBITUSSIN DM 110 ML PO (14:36)
[2018-03-28] MEDS ORDERED: FLORAJEN3 CAPS460 MG PO (14:36)
[2018-03-28] MEDS ORDERED: MUCINEX600 MG PO (14:36)
[2018-03-28] MEDS ORDERED: PHENAZOPYRIDIN100 MG PO (14:37)
--- NOTE | 2018-03-28 15:08 | MORECARE ---
CASE MANAGEMENT DISCHARGE SUMMARY PATIENT: CLARE DOUGLASS UNIT: [id number] ADM DATE: 03/21/18 AGE: 78 : 42 SEX: M ROOM/BED: D.2224 AUTHOR: FAROOQ,DOC PHYSICIAN: REFERRING PHYSICIAN: PAULO SELBY MD DATE OF SERVICE: 03/28/18 Discharge Plan Patient Name: CLARE DOUGLASS Facility: [facility]:[place] : 1940 Planned Disposition: Home Anticipated Discharge Date: Discharge Date: Expected LOS: Initial Reviewer: [email or web address] Initial Review Date: 03/22/2018 Generated: 03/28/18 4:07 pm Comments DCP- Discharge Planning Updated by [email or web address]: Roxana Ruggiero on 03/28/18 2:[address] Patient Name: CLARE DOUGLASS Encounter No: [id number] : 1940 Primary Insurance: MEDICARE A & B Anticipated DC Date: Planned Disposition: Home External Planned Provider: : DCP follow-up note: Patient and family in agreement with discharge plan. is here and will take him home on discharge. He and decline HHS. No needs identified. Discharging home today. CM will continue to follow and assist with discharge planning/needs. Roxana Ruggiero DCP- Discharge Planning Updated by [email or web address]: Roxana Ruggiero on 03/25/18 2:[address] Met with , patient is sleeping. states they will not need home health on discharge. States he still works every day. Declines need for further DME. No needs identified. CM will continue to follow and assist with discharge planning/needs. DCP- Discharge Planning Updated by [email or web address]: Roxana Ruggiero on 03/22/18 1:[address] Patient Name: CLARE DOUGLASS Admission Status: Elective Accout number: [id number] Admission Date: 03-21-2018 : 1940 Admission Diagnosis: Attending: PAULO SELBY Current LOS: 1 Anticipated DC Date: Planned Disposition: Home Primary Insurance: MEDICARE A & B Discharge Planning Comments: CM met with patient to discuss discharge planning, he is alone in the room. He states he lives in a 2 story home with his . He states he stays on the first floor ("I haven't been upstairs in 8 years"). States he is independent with all ADL's. States "I'm still working". States his CPAP and oxygen supply came from [facility]. States he does not wear oxygen, it is just for his CPAP. Denies need for DME or home health services. CM will continue to follow and assist with discharge planning/needs. Enterprise Application Administrator: Roxana Ruggiero DCPIA - Discharge Planning Initial Assessment Updated by [email or web address]: Roxana Ruggiero on 03/22/18 2:46 pm * Is the patient Alert and Oriented? Yes * How many steps to enter\\exit or inside your home? 04/08 flight * PCP Dr. Selby * [facility] * Preadmission Environment Home with Family * ADLs Independent * Equipment CPAP Oxygen * List name and contact numbers for known caregivers / representatives who currently or will assist patient after discharge: Jasmyn Douglass - [facility] - [phone] * Verbal permission to speak to the caregivers and representatives has been obtained from the patient. Yes * Community resources currently utilized None * Please name any agencies selected above. DME choice is [facility] * Additional services required to return to the preadmission environment? No * Can the patient safely return to the preadmission environment? Yes * Has this patient been hospitalized within the prior 30 days at any hospital? No Coverage Notice Reviewer: [email or web address] - Roxana Ruggiero Notice Issued Date-Time: 03/28/2018 14:59 Notice Type: IM Discharge Notice Notice Delivered To: Patient Relationship to Patient: Self Trimming Machine Operator Name: Delivery Method: HAND - Hand Delivered Monica Days: Prior Verbal Notification: Recipient Understood Notice: Yes Recipient Signature: Yes Med Rec Note Co-signed by Attending: Coverage Notice Comment: IMM explained, signed, given, copy placed in MR Last DP export: 03/25/18 2:33 p Patient Name: CLARE DOUGLASS Page [phone] at 1508 All edits/amendments must be made on the electronic document DICTATION DATE: 03/28/18 1507 NURSE ANESTHETIST: GERARDO 03/28/18 150 RPT#: [id number] DC DATE: STATUS: ADM IN [facility] [address] [place] [address] END OF REPORT
[2018-03-28 17:09] VITALS: BP 124/53
--- NOTE | 2018-03-29 09:35 | MORECARE ---
CASE MANAGEMENT DISCHARGE SUMMARY PATIENT: CLARE DOUGLASS UNIT: [id number] ADM DATE: 03/21/18 AGE: 78 : 42 SEX: M ROOM/BED: D.2224 AUTHOR: RACHEL TRIVEDI PHYSICIAN: REFERRING PHYSICIAN: PAULO SELBY MD DATE OF SERVICE: 03/29/18 Discharge Plan Patient Name: CLARE DOUGLASS Facility: [facility]:[place] : 1940 Planned Disposition: Home Anticipated Discharge Date: Discharge Date: 03/28/2018 Expected LOS: 0 Initial Reviewer: [email or web address] Initial Review Date: 03/22/2018 Generated: 03/29/18 10:35 am Comments DCP- Discharge Planning Updated by [email or web address]: Roxana Ruggiero on 03/28/18 2:[address] Patient Name: CLARE DOUGLASS Encounter No: [id number] : 1940 Primary Insurance: MEDICARE A & B Anticipated DC Date: Planned Disposition: Home External Planned Provider: : DCP follow-up note: Patient and family in agreement with discharge plan. is here and will take him home on discharge. He and decline HHS. No needs identified. Discharging home today. CM will continue to follow and assist with discharge planning/needs. Roxana Ruggiero DCP- Discharge Planning Updated by [email or web address]: Roxana Ruggiero on 03/25/18 2:[address] Met with , patient is sleeping. states they will not need home health on discharge. States he still works every day. Declines need for further DME. No needs identified. CM will continue to follow and assist with discharge planning/needs. DCP- Discharge Planning Updated by [email or web address]: Roxana Ruggiero on 03/22/18 1:[address] Patient Name: CLARE DOUGLASS Admission Status: Elective Accout number: [id number] Admission Date: 03-21-2018 : 1940 Admission Diagnosis: Attending: PAULO SELBY Current LOS: 1 Anticipated DC Date: Planned Disposition: Home Primary Insurance: MEDICARE A & B Discharge Planning Comments: CM met with patient to discuss discharge planning, he is alone in the room. He states he lives in a 2 story home with his . He states he stays on the first floor ("I haven't been upstairs in 8 years"). States he is independent with all ADL's. States "I'm still working". States his CPAP and oxygen supply came from [facility]. States he does not wear oxygen, it is just for his CPAP. Denies need for DME or home health services. CM will continue to follow and assist with discharge planning/needs. Grain Trader: Roxana Ruggiero DCPIA - Discharge Planning Initial Assessment Updated by [email or web address]: Roxana Ruggiero on 03/22/18 2:46 pm * Is the patient Alert and Oriented? Yes * How many steps to enter\\exit or inside your home? 04/08 flight * PCP Dr. Selby * [facility] * Preadmission Environment Home with Family * ADLs Independent * Equipment CPAP Oxygen * List name and contact numbers for known caregivers / representatives who currently or will assist patient after discharge: Jasmyn Douglass - [facility] - [phone] * Verbal permission to speak to the caregivers and representatives has been obtained from the patient. Yes * Community resources currently utilized None * Please name any agencies selected above. DME choice is [facility] * Additional services required to return to the preadmission environment? No * Can the patient safely return to the preadmission environment? Yes * Has this patient been hospitalized within the prior 30 days at any hospital? No Coverage Notice Reviewer: [id number] - Roxana Ruggiero Notice Issued Date-Time: 03/28/2018 14:59 Notice Type: IM Discharge Notice Notice Delivered To: Patient Relationship to Patient: Self Draughtsman Name: Delivery Method: HAND - Hand Delivered Monica Days: Prior Verbal Notification: Recipient Understood Notice: Yes Recipient Signature: Yes Med Rec Note Co-signed by Attending: Coverage Notice Comment: IMM explained, signed, given, copy placed in MR Last DP export: 03/28/18 2:08 p Patient Name: CLARE DOUGLASS Page [id number] at 0935 All edits/amendments must be made on the electronic document DICTATION DATE: 03/29/18933 HEALTH PROGRAM DIRECTOR: GERARDO 03/29/18933 RPT#: [id number] DC DATE:03/28/18 STATUS: DIS IN [place] [id number] [place] [address] END OF REPORT
== END 2018-03-28 17:19 | disposition home or self-care (01) | DRG 194 ==
LOC: D.MS 18:59 → OBSVTIME 19:00 → D.MS 03-21 14:28
PROVIDERS: Internal Medicine Nephrology; ADMIT Family Medicine
DX: J18.9 Pneumonia, unspecified organism (principal); N17.9 Acute kidney failure, unspecified; I10 Essential (primary) hypertension; G47.33 Obstructive sleep apnea (adult) (pediatric); E11.9 Type 2 diabetes mellitus without complications; I25.10 Atherosclerotic heart disease of native coronary artery without angina pectoris; N40.1 Benign prostatic hyperplasia with lower urinary tract symptoms; R33.8 Other retention of urine

== ENCOUNTER 2018-04-05 09:07 | Day surgery (SDC) | payer MEDICARE, BC ==
[~2018-04-05] VITALS: Ht 177.8 cm; Wt 110.2 kg
[~2018-04-05 09:07] MED LIST changes: +FLORAJEN3 CAPS460 MG PO; +LEVAQUIN750 MG PO; +MUCINEX600 MG PO; +PHENAZOPYRIDIN100 MG PO; +ROBITUSSIN DM 110 ML PO
[2018-04-05 09:31] LABS: HEMATOCRIT 49.9 % (42.0-54.0); HEMOGLOBIN 16.9 g/dL (13.5-17.5); MCH 29.3 pg (26.0-34.0); MCHC 33.9 g/dL (31.0-37.0); MCV 86.5 fL (80.0-100.0); MEAN PLATELET VOLUME 9.9 fL (7.4-10.4); RBC 5.77 10x6/uL (4.20-6.10); RDW 15.9 % (11.5-14.5); WBC 9.6 10x3/uL (4.8-10.8)
[2018-04-05 11:25] VITALS: BP 144/73; Ht 177.8 cm; Wt 110.2 kg
--- NOTE | 2018-04-05 14:05 | NUR ---
1400-RECD TO ROOM FROM SURGERY, NO PACU. RESP WITH EASE. IV PATENT. 1405-DR KOCH IN TO REPORT FINDINGS.
--- NOTE | 2018-04-05 15:36 | NUR ---
DC INSTRUCTIONS GIVEN TO PT/FAMILY. STATE UNDERSTANDING. DC'D IV CATH FULLY INTACT. PT LEFT UNIT VIA WC AT 1535.
--- NOTE | 2018-04-06 08:20 | OP ---
PATIENT NAME: CLARE PERRY MEDICAL RECORD: [id number] :[birth year] LOCATION:D.[facility] ADMISSION DATE: SURGEON: TOMMY KOCH MD DATE OF OPERATION: 04/05/2018 SURGEON: Tommy Koch MD. 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 PROCEDURE: UroLift times 4 implant. FINDINGS: Bilateral lateral lobe hyperplasia. No median lobe visible. Single ureteral orifices bilaterally. Heavily trabeculated bladder without any bladder tumors. ESTIMATED BLOOD LOSS: Minimal. CLINICAL HISTORY: This is a 78-year-old male, who was admitted to hospital with bilateral pneumonia. He was also found to be in urinary retention. He had a Tubbs catheter placed and his postvoid residual was 400 mL. He wants to be rid of the catheter. His IPSS score prior to catheterization was 28 and quality of life score is 5. On digital rectal examination, his prostate is about 40 mL in size. HE IS ALLERGIC TO CODEINE. He came today to have the UroLift procedure done. DESCRIPTION OF PROCEDURE: The patient was given IV Ancef. He was then placed into dorsal lithotomy position and prepped and draped. The UroLift cystoscope was used. The penile urethra was nonobstructive. In the prostatic urethra, he has bilateral lateral lobe obstruction. The bladder neck region shows minimal to no median lobe. The bladder is trabeculated. No bladder tumors were seen. Single ureteral orifices are seen on each side. We then introduced the UroLift implants. Two were placed at the bladder neck level, about 1.5 cm distal to the bladder neck. They were placed at the anterior lateral lobes. Another 2 were placed, one on each side, at the level of the verumontanum. Again, these were placed at the anterior lateral lobe level. We now had a nice open anterior urethral channel. The bladder was emptied through the cystoscope sheath and then the scope was removed. I inserted a 16-Sami Tubbs catheter back. The patient will go home with a Tubbs catheter. He will come back in a few days' time for a voiding trial in the office. TRANSINT:[id number] Voice Confirmation ID: [id number] DOCUMENT ID: [id number] TOMMY KOCH MD at 0882 CC: [id number] DICTATION DATE: 04/05/18 1352 MANAGER OF MAINTENANCE: 04/05/184 [facility] 04/05/18 [place] [address] [place] [id number]
== END 2018-04-05 15:35 | disposition home or self-care (01) ==
LOC: D.OPS 09:07 → D.PAN 14:00 → D.OPS 15:35
PROVIDERS: Anesthesiology; ATTEND Urology
DX: N40.1 Benign prostatic hyperplasia with lower urinary tract symptoms (principal); N13.8 Other obstructive and reflux uropathy; R33.8 Other retention of urine; N32.89 Other specified disorders of bladder; Z88.5 Allergy status to narcotic agent; Z01.812 Encounter for preprocedural laboratory examination

== ENCOUNTER 2019-07-09 15:36 | Inpatient (IN) | payer MEDICARE, BC ==
[~2019-07-09] VITALS: Ht 177.8 cm; Wt 124.1 kg
--- NOTE | 2019-07-09 16:14 | NUR ---
pt transported to ct at this time via stretcher
--- NOTE | 2019-07-09 16:29 | NUR ---
PT RETURNED FROM CT AT THIS TIME.
[2019-07-09 16:38] VITALS: BP 129/55
[2019-07-09 16:44] LABS: BILIRUBIN NEGATIVE (NEGATIVE); GLUCOSE NEGATIVE (NEGATIVE); KETONE NEGATIVE (NEGATIVE); NITRITE NEGATIVE (NEGATIVE); UROBILINOGEN NORMAL (NORMAL)
[2019-07-09 17:02] LABS: BASOPHILS 0.4 % (0-2); EOSINOPHILS 0 % (0-7); HEMATOCRIT 43.8 % (42.0-54.0); HEMOGLOBIN 14.5 g/dL (13.5-17.5); IMMATURE GRANULOCYTES 0.4 % (0-5); LYMPHOCYTES 17.3 % (15-50); MCH 31.4 pg (26.0-34.0); MCHC 33.1 g/dL (31.0-37.0); MCV 94.8 fL (80.0-100.0); MEAN PLATELET VOLUME 10.1 fL (7.4-10.4); MONOCYTES 8.8 % (2-11); NEUTROPHILS 73.1 % (40-80); PLATELET COUNT 170 10x3/uL (130-400); RBC 4.62 10x6/uL (4.20-6.10); RDW 13.2 % (11.5-14.5); WBC 4.8 10x3/uL (4.8-10.8)
[2019-07-09 17:14] LABS: APTT 27.4 SECONDS (22.8-39.4); INR 1.05 (0.85-1.17); PROTIME 13.6 SECONDS (11.6-15.0)
[2019-07-09 17:16] LABS: CALC OSMOLALITY 273 mosm/kg (275-300); CALCIUM 8.6 mg/dL (8.5-10.1); CARBON DIOXIDE 28.1 mmol/L (21.0-32.0); CHLORIDE - SERUM 100 mmol/L (98-107); CREATININE - SERUM 1.6 mg/dL (0.6-1.3); GLUCOSE 132 mg/dL (74-106); POTASSIUM - SERUM 3.9 mmol/L (3.5-5.1); SODIUM 135 mmol/L (136-145); UREA NITROGEN 17 mg/dL (7-18); eGFR NON AFRICAN AMERICAN 45 mL/min (90-120)
[2019-07-09 17:33] LABS: ALBUMIN 3.7 g/dL (3.4-5.0); ALKALINE PHOSPHATASE 64 U/L (30-120); ALT (SGPT) 66 U/L (10-68); BILIRUBIN - TOTAL 0.48 mg/dL (0.2-1.3); C-REACTIVE PROTEIN 4.9 mg/dL (0.0-0.9); CKMB 1.1 U/L (0.0-3.6); CREATINE KINASE 174 UL (21-232); LIPASE 57 U/L (73-393); MAGNESIUM - SERUM 1.7 mg/dL (1.8-2.4); PROTEIN - SERUM 6.9 g/dL (6.4-8.2)
[2019-07-09 17:34] LABS: TROPONIN-I < 0.017 ng/mL (0.000-0.060)
[2019-07-09 18:06] VITALS: BP 106/43
[2019-07-09] MEDS ORDERED: CHLOROQUINE PH250 MG PO (18:08)
[2019-07-09 18:55] VITALS: BP 98/42
[2019-07-10 00:20] VITALS: BP 121/59
[2019-07-10 00:43] VITALS: BP 108/49; Ht 177.8 cm; Wt 124.1 kg
--- NOTE | 2019-07-10 02:20 | NUR ---
PT ARRIVED VIA STRETCHER FROM ER AT 2000 HRS. WITH DX WEAKNESS, FEVER R/O COVID. VSS. PT AFEBRILE. ALERT AND ORIENTED TO PERSON, PLACE AND TIME. GARCIA. LUNGS CTA. GARCIA. SCAB NOTED TO L KNEE. IV TO R HAND WITH NS BOLUS FROM ER INFUSING. ADMISSION ASSESSMENT. HISTORY AND HOME MED LIST COMPLETED. VISUAL MONITOR RATIONALE EXPLAINED TO PT WHO STATED UNDERSTANDING. PT SILLED URINAL AT 2240 HRS. PT CLEANED AND BED LINENS CHANGED. PT TOLERATED ACTIVITY WELL. PT CURERNTLY DENIES ANY DISCOMFRT OR NEEDS. SR UP X2, CALL LIGHT WITHIN REACH.
--- NOTE | 2019-07-10 03:29 | NUR ---
PT AWAKE; MO DISTRESS NOTED. CALL LIGHT WITHIN REACH.
[2019-07-10 05:42] VITALS: BP 119/55
--- NOTE | 2019-07-10 06:02 | NUR ---
VSS THROUGHOUT NIGHT. AFEBRILE. DENIED ANY DISCOMFORT. STATES HE FEELS HIS LEGS ARE STRONGER THIS AM. NEEDS MET; WILL CONTINUE TO MONITOR.
[2019-07-10 08:41] VITALS: BP 140/72
--- NOTE | 2019-07-10 19:16 | NUR ---
AWAKE AND ALERT DENIES NEEDS AT THIS TIME BED LOW AND LOCKED.
[2019-07-10 20:00] VITALS: BP 127/69
[2019-07-10 22:52] LABS: CKMB 0.9 U/L (0.0-3.6); CREATINE KINASE 197 UL (21-232); MAGNESIUM - SERUM 1.7 mg/dL (1.8-2.4); TROPONIN-I < 0.017 ng/mL (0.000-0.060)
[2019-07-10 23:57] VITALS: BP 123/66
[2019-07-11 02:57] LABS: BASOPHILS 0.2 % (0-2); EOSINOPHILS 0 % (0-7); HEMATOCRIT 41.1 % (42.0-54.0); HEMOGLOBIN 13.5 g/dL (13.5-17.5); IMMATURE GRANULOCYTES 0.2 % (0-5); LYMPHOCYTES 21.1 % (15-50); MCH 30.7 pg (26.0-34.0); MCHC 32.8 g/dL (31.0-37.0); MCV 93.4 fL (80.0-100.0); MEAN PLATELET VOLUME 10.1 fL (7.4-10.4); MONOCYTES 7.9 % (2-11); NEUTROPHILS 70.6 % (40-80); PLATELET COUNT 156 10x3/uL (130-400); RDW 13.1 % (11.5-14.5); WBC 4.6 10x3/uL (4.8-10.8)
[2019-07-11 03:22] LABS: ALBUMIN 3.1 g/dL (3.4-5.0); ALKALINE PHOSPHATASE 52 U/L (30-120); ALT (SGPT) 59 U/L (10-68); BILIRUBIN - TOTAL 0.37 mg/dL (0.2-1.3); CALCIUM 8.1 mg/dL (8.5-10.1); CARBON DIOXIDE 24.6 mmol/L (21.0-32.0); CHLORIDE - SERUM 103 mmol/L (98-107); CKMB 1.1 U/L (0.0-3.6); CREATINE KINASE 191 UL (21-232); CREATININE - SERUM 1.5 mg/dL (0.6-1.3); MAGNESIUM - SERUM 1.8 mg/dL (1.8-2.4); POTASSIUM - SERUM 4.1 mmol/L (3.5-5.1); PROTEIN - SERUM 6.4 g/dL (6.4-8.2); SODIUM 138 mmol/L (136-145); UREA NITROGEN 16 mg/dL (7-18); eGFR NON AFRICAN AMERICAN 48 mL/min (90-120)
[2019-07-11 03:23] LABS: CALC OSMOLALITY 282 mosm/kg (275-300); GLUCOSE 209 mg/dL (74-106); TROPONIN-I < 0.017 ng/mL (0.000-0.060)
[2019-07-11 04:27] VITALS: BP 103/58
[2019-07-11 08:47] VITALS: BP 140/73
[2019-07-11 09:23] LABS: CKMB 1.2 U/L (0.0-3.6); CREATINE KINASE 208 UL (21-232)
[2019-07-11 09:27] LABS: TROPONIN-I < 0.017 ng/mL (0.000-0.060)
--- NOTE | 2019-07-11 12:46 | MORECARE ---
CASE MANAGEMENT DISCHARGE SUMMARY PATIENT: CLARE PERRY UNIT: [id number] ADM DATE: 07/09/19 AGE: 79 : 42 SEX: M ROOM/BED: D.9273 AUTHOR: RACHEL TRIVEDI PHYSICIAN: REFERRING PHYSICIAN: DOUGLAS GRAHAM MD DATE OF SERVICE: 07/11/19 Discharge Plan Patient Name: CLARE PERRY Facility: [facility]:[place] : 1940 Planned Disposition: Home Anticipated Discharge Date: Discharge Date: Expected LOS: 0 Initial Reviewer: [email or web address] Initial Review Date: 07/09/2019 Generated: 07/11/19 1:46 pm Comments DCP- Discharge Planning Updated by [email or web address]: Sindy Dailey on 07/11/19 11:[address] Patient Name: CLARE PERRY Admission Status: ER Admission Date: 07-09-2019 : 1940 Admission Diagnosis: VIRAL INFECTION, UNSPECIFIED Attending: MAT GRAHAM Current LOS: 2 Anticipated DC Date: Planned Disposition: Home Primary Insurance: MEDICARE A & B Discharge Planning Comments: CM met with patient to complete initial dc planning assessment. CM educated patient on the CM role and verbal consent given by patient to complete assessment. CM verified patient's address, phone number, and emergency contact phone numbers. Patient lives at home with his , Bev and her sister. At discharge patient plans to return home and feels this is a safe discharge. CM discussed availability of home health, rehab services, and medical equipment. Patient denied known discharge needs at this time. Patient states he does not have any trouble ambulating, and "those girls at home take good care of me".Transportation provider at discharge will be Bev . ERIC declination signed for IP rehab, and Home health. DC IMM delivered, explained, signed by the patient, and placed in his chart. Signed form also left with patient. CM will continue to follow and will assist as needed with dc plans/needs. Certified Medical Biller: Sindy Dailey MSN,RN,CM Patient Name: CLARE PERRY Page [phone] at 1246 All edits/amendments must be made on the electronic document DICTATION DATE: 07/11/191245 PULMONARY SPECIALIST: GERARDO 07/11/196 RPT#: [id number] DC DATE: STATUS: ADM IN [facility] [address] [place] [address] END OF REPORT
[2019-07-11 13:11] VITALS: BP 147/62
--- NOTE | 2019-07-11 14:20 | NUR ---
DC PAPERWORK GONE OVER AND SIGNED WITH PT. ALL QUESTIONS ANSWERED. PIV REMOVED,CATH TIP FULLY INTACT. PT WHEELED DOWNSTAIRS VIA WHEELCHAIR. TELEMETRY REMOVED AND RETURNED TO EDUCATION PARAPROFESSIONAL. ALL VALUBABLES REMOVED FROM ROOM.
== END 2019-07-11 14:21 | disposition home or self-care (01) | DRG 872 ==
LOC: D.ER 15:36 → D.M2 18:25
PROVIDERS: Emergency Medicine; Family Medicine; ADMIT Emergency Medicine; ATTEND Emergency Medicine
DX: A41.89 Other specified sepsis (principal); Z68.41 Body mass index [BMI] 40.0-44.9, adult; B34.9 Viral infection, unspecified; E66.9 Obesity, unspecified; K21.9 Gastro-esophageal reflux disease without esophagitis; I10 Essential (primary) hypertension; I25.10 Atherosclerotic heart disease of native coronary artery without angina pectoris; E11.65 Type 2 diabetes mellitus with hyperglycemia